=== PATIENT | male | born 1970 | race Caucasian/White ===

== ENCOUNTER 2016-11-27 22:22 | Emergency (ER) | payer MEDICAID, OTHER ==
[~2016-11-27] VITALS: Ht 172.7 cm; Wt 86.5 kg
[~2016-11-27 22:22] MED LIST: AZIT250T94 PO
[2016-11-27 23:07] VITALS: Ht 172.7 cm; Wt 86.5 kg
[2016-11-28] MEDS ORDERED: HYDROCODONE/APAP (5/325) TAB PO ONE (02:00)
--- NOTE | 2016-11-28 02:24 | ERD ---
ER Documentation Chief Complaint Date/Time DATE: 11/28/16 TIME: 02:22 Chief Complaint LEFT ANKLE PAIN FOR 3 DAYS; NO INJURY/TRAUMA PER PT HPI 46-year-old male presents to emergency department for complaints of left ankle pain mean to the left upper neck area for the last 3 days, patient was working, was lifting heavy objects, may have twisted the left ankle, describes the pain as throbbing pain, succession scale, is worse upon movement accompanied with swelling. Patient denies any numbness or tingling. Patient denies any fever or chills. ROS All systems reviewed and are negative except as per history of present illness. Medications Home Meds Active Scripts Ibuprofen* (Motrin*) 600 Mg Tab, 600 MG PO Q6H Y for PAIN AND OR ELEVATED TEMP, #30 TAB Prov:GILLIAN COLON NP 11/28/16 Hydrocodone/Acetaminophen ([place] 5-325 Tablet) 1 Each Tablet, 1 TAB PO Q6H Y for SEVERE PAIN LEVEL 7-10, #20 TAB Prov:GILLIAN COLON NP 11/28/16 Azithromycin* (Zithromax*) 250 Mg Tablet, 250 MG PO .ZPACK DIRECTED, #6 TAB TAKE 500 MG (2 TABS) THE FIRST DAY THEN 250 MG (1 TAB) DAYS 2-5 Prov:LILY LIRIANO DO 05/09/16 Allergies Allergies: Coded Allergies: No Known Allergy (Unverified , 05/09/16) PMhx/Soc History of Surgery: Yes (LEFT EYE SURGERY AND LEFT ARM SURGERY) Anesthesia Reaction: No Hx Neurological Disorder: No Hx Respiratory Disorders: No Hx Cardiac Disorders: No Hx Psychiatric Problems: No Hx Miscellaneous Medical Probl: No Hx Alcohol Use: Yes Hx Substance Use: No Hx Tobacco Use: No Smoking Status: Never smoker FmHx Family History: No coronary disease, No diabetes, No other Physical Exam Vitals Vital Signs Date Time Temp Pulse Resp B/P Pulse Ox O2 Delivery O2 Flow Rate FiO2 11/27/16 23:07 97.9 85 20 139/87 99 Physical Exam GENERAL: The patient is well developed and appropriate for usual state of health, in no apparent distress. CHEST: Clear to auscultation bilaterally. There are no rales, wheezes or rhonchi. HEART: Regular rate and rhythm. No murmurs, clicks, rubs or gallops. No S3 or S4. ABDOMEN: Soft, nontender and nondistended. Good bowel sounds. No rebound or guarding. No gross peritonitis. No gross organomegaly or masses. No Carolina sign or McBurney point tenderness. BACK: No midline or flank tenderness. EXTREMITIES: Redness on palpation and lateral malleolus with swelling noted, no erythema, no limitation of movement of the joint. Equal pulses bilaterally. Full range of motion of other joints of the body. Grossly neurovascularly intact. NEURO: Alert and oriented. Cranial nerves 2-12 intact. Motor strength in all 4 extremities with 5/5 strength. Sensation grossly intact. Normal speech and gait. SKIN: There is no apparent rash or petechia. The skin is warm and dry. HEMATOLOGIC AND LYMPHATIC: There is no evidence of excessive bruising or lymphedema. No gross cervical, axillary, or inguinal lymphadenopathy. Results 24 hrs Current Medications Medications (Trade) Dose Ordered Sig/Kelly Route PRN Reason Start Time Stop Time Status Last Admin Dose Admin Acetaminophen/ Hydrocodone Bitart ([place] (5/325)) 1 tab ONCE ONCE PO 11/28/16 02:00 11/28/16 02:01 DC 11/28/16 02:31 Patient was given medication for pain here in emergency department, after treatment, patient verbalized feeling much better. Patient's pain is improved. PROCEDURE: XR Ankle. CLINICAL INDICATION: Ankle pain. TECHNIQUE: AP, lateral and oblique views of the left ankle were performed. COMPARISON: There are no similar studies submitted for comparison. FINDINGS: There is normal bone mineralization.There is no acute fracture or dislocation.The ankle mortise is intact.No osseous lesion is identified.There is no soft tissue swelling. IMPRESSION: No acute fracture or dislocation. RPTAT: HIKT .Jameel Guerra MD, MD Date Time Electronically viewed and signed by .Jameel Guerra MD, on 11/28/2016 04:46 .T/ CC: GILLIAN COLON NP After receiving patients xray report, a _orthopedic boot was applied on the patients left foot. After application of the splint, patient has intact sensation and circulation on distal area of the affected joint. Patient does not complain of numbness or tingling after application of the splint. Patient tolerated procedure well. Crutches was given to use afterwards. Procedures/MDM Medical Decision Making: Patient's pain is most likely consistent with a contusion or a sprain. There is no suspicion for neurovascular compromise. Patient has intact sensation and circulation of the affected extremity. There is low suspicion for septic arthritis. Patient does not have any fever. Radiology exams of the affected area does not show any fracture or dislocation. Disposition: Home. Patient is given prescription for ibuprofen for pain. Patient was advised to elevate the affected area and apply ice on affected area. Patient was advised that if symptoms are worse, numbness, tingling, high fever, unable to move joint, worsening symptoms, to return to emergency department immediately. Otherwise, patient is advised to follow up with the primary care doctor in 5-7 days for reevaluation of symptoms. Departure Diagnosis: Primary Impression: Ankle pain Laterality: left Chronicity: acute Qualified Code: M25.572 - Acute left ankle pain Condition: Stable GILLIAN COLON NP Nov 28, 2016 02:24
[2016-11-28] MEDS ORDERED: HYDR-906 PO (04:47)
[2016-11-28] MEDS ORDERED: IBUP-1542 PO (04:47)
--- NOTE | 2016-11-28 04:47 | RADRPT ---
PROCEDURE: XR Ankle. CLINICAL INDICATION: Ankle pain. TECHNIQUE: AP, lateral and oblique views of the left ankle were performed. COMPARISON: There are no similar studies submitted for comparison. FINDINGS: There is normal bone mineralization.There is no acute fracture or dislocation.The ankle mortise is i ntact.No osseous lesion is identified.There is no soft tissue swelling. IMPRESSION: No acute fracture or dislocation. RPTAT: HIKT .Jameel Guerra MD, MD Date Time Electronically viewed and signed by .Jameel Guerra MD, on 11/28/2016 04:46 .T/
== END 2016-11-28 05:20 | disposition home or self-care (01) ==
LOC: FTE 22:22
DX: M25.572 Pain in left ankle and joints of left foot (principal)
CPT/HCPCS: 73610; Z7502; Z7610

== ENCOUNTER 2016-12-16 00:31 | Inpatient (IN) | payer OTHER ==
[~2016-12-16] VITALS: Ht 182.9 cm; Wt 88.0 kg
[2016-12-16] VITALS (8 sets, daily range): BP systolic 95–158; BP diastolic 57–98; PULSE 70–89; RESP 18–22; TEMP 99.3; Ht 182.9 cm; Wt 88.0 kg
[~2016-12-16 00:31] MED LIST changes: +HYDR-906 PO; +IBUP-1542 PO
--- NOTE | 2016-12-16 01:27 | ERA ---
ER Documentation Chief Complaint Date/Time DATE: 12/16/16 TIME: 01:26 Chief Complaint Right-sided chest pain HPI The patient is a 46-year-old male, presenting to the ER because he has acute dyspnea with acute hemoptysis about 3 hours prior to arrival with pleuritic chest pain. He denies fever, chills, syncope, near syncope, neck pain. The pain is also worse with movement. He had similar symptoms previously when he had pneumonia. He denies abdominal pain, vomiting, dysuria, diarrhea. He has been sedentary because of injury of the left leg couple weeks ago. He is awaiting for further study of the left leg. He does not smoke, drinks socially Past medical history: None Past Surgical history: Appendectomy ROS All systems reviewed and are negative except as per history of present illness. Medications Home Meds Active Scripts Ibuprofen* (Motrin*) 600 Mg Tab, 600 MG PO Q6H Y for PAIN AND OR ELEVATED TEMP, #30 TAB Prov:GILLIAN COLON NP 11/28/16 Hydrocodone/Acetaminophen ([place] 5-325 Tablet) 1 Each Tablet, 1 TAB PO Q6H Y for SEVERE PAIN LEVEL 7-10, #20 TAB Prov:GILLIAN COLON SENIOR CHEMICAL ENGINEER 11/28/16 Reported Medications Methylprednisolone* (Medrol* DOSE PACK) 4 Mg/Dose-Pack Tab.ds.pk, 4 MG PO . DIRECTED, PACKET 12/16/16 Discontinued Scripts Azithromycin* (Zithromax*) 250 Mg Tablet, 250 MG PO .ZPACK DIRECTED, #6 TAB TAKE 500 MG (2 TABS) THE FIRST DAY THEN 250 MG (1 TAB) DAYS 2-5 Prov:LILY LIRIANO DO 05/09/16 Allergies Allergies: Coded Allergies: No Known Allergy (Unverified , 12/16/16) PMhx/Soc History of Surgery: Yes (LEFT EYE SURGERY AND LEFT ARM SURGERY) Anesthesia Reaction: No Hx Neurological Disorder: No Hx Respiratory Disorders: No Hx Cardiac Disorders: No Hx Psychiatric Problems: No Hx Miscellaneous Medical Probl: No Hx Alcohol Use: Yes Hx Substance Use: No Hx Tobacco Use: No Physical Exam Vitals Vital Signs Date Time Temp Pulse Resp B/P Pulse Ox O2 Delivery O2 Flow Rate FiO2 12/16/16 04:38 76 123/76 98 Room Air 4.0 Nasal Cannula 12/16/16 02:23 Nasal Cannula 2 12/16/16 00:38 98.2 116 20 137/86 95 Physical Exam Const: No acute distress. Head: Atraumatic. Eyes: Normal Conjunctiva. ENT: Normal External Ears, Nose and Mouth. Neck: Full range of motion. No meningismus. Resp: Bibasilar crackle, tachypneic Cardio: Regular but tachycardic Abd: Soft, non distended, normal bowel sounds, non tender. Skin: No petechiae or rashes. Back: No midline or flank tenderness. Ext: Left calf and posterior thigh tenderness Neur: Awake and alert. No focal deficit Psych: Normal Mood and Affect. Result Diagram: 12/16/1622612/16/16226 Results 24 hrs Laboratory Tests Test 12/16/16 02:27 White Blood Count 13.310^3/ul Red Blood Count 5.0210^6/ul Hemoglobin 16.0g/dl Hematocrit 47.9% Mean Corpuscular Volume 95.4fl Mean Corpuscular Hemoglobin 31.9pg Mean Corpuscular Hemoglobin Concent 33.4g/dl Red Cell Distribution Width 13.3% Platelet Count 43359^3/UL Mean Platelet Volume 8.6fl Neutrophils % 67.3% Lymphocytes % 18.9% Monocytes % 12.1% Eosinophils % 0.5% Basophils % 0.6% Nucleated Red Blood Cells % 0.0/100WBC Neutrophils # 8.910^3/ul Lymphocytes # 2.510^3/ul Monocytes # 1.610^3/ul Eosinophils # 0.110^3/ul Basophils # 0.110^3/ul Nucleated Red Blood Cells # 0.010^3/ul Prothrombin Time 13.8Sec Prothrombin Time Ratio 1.1 INR International Normalized Ratio 1.06 Activated Partial Thromboplast Time 28.3Sec Sodium Level 143mmol/L Potassium Level 3.4mmol/L Chloride Level 96mmol/L Carbon Dioxide Level 30mmol/L Anion Gap 20 Blood Urea Nitrogen 9mg/dl Creatinine 0.97mg/dl Glucose Level 95mg/dl Calcium Level 8.9mg/dl Total Bilirubin 0.6mg/dl Direct Bilirubin 0.00mg/dl Indirect Bilirubin 0.6mg/dl Aspartate Amino Transf (AST/SGOT) 19IU/L Alanine Aminotransferase (ALT/SGPT) 39IU/L Alkaline Phosphatase 94IU/L Troponin I < 0.012ng/ml Total Protein 7.7g/dl Albumin 4.3g/dl Globulin 3.40g/dl Albumin/Globulin Ratio 1.26 Lipase 33U/L Ethyl Alcohol Level < 10.0mg/dl Current Medications Medications (Trade) Dose Ordered Sig/Kelly Route PRN Reason Start Time Stop Time Status Last Admin Dose Admin Morphine Sulfate (morphine) 4 mg ONCE STAT IV 12/16/16 01:51 12/16/16 01:52 DC 12/16/16 02:23 Ondansetron HCl (Zofran Inj) 4 mg ONCE STAT IV 12/16/16 01:51 12/16/16 01:52 DC 12/16/16 02:23 Enoxaparin Sodium (Lovenox) 90 mg ONCE ONCE SC 12/16/16 03:00 12/16/16 03:01 DC 12/16/16 02:36 IV Flush 10 ml 10 ml STK-MED ONCE .ROUTE 12/16/16 03:32 12/16/16 03:33 DC 12/16/16 03:50 Sodium Chloride (NS) 100 ml @ ud STK-MED ONCE .ROUTE 12/16/16 03:32 12/16/16 03:33 DC 12/16/16 03:50 Iodixanol (Visipaque Locm) 100 ml STK-MED ONCE .ROUTE 12/16/16 03:32 12/16/16 03:33 DC 12/16/16 03:50 Potassium Chloride 40 meq 40 meq ONCE ONCE PO 12/16/16 03:34 12/16/16 03:35 DC 12/16/16 05:18 Levofloxacin/ Dextrose 150 ml @ 100 mls/hr ONCE ONCE IVPB 12/16/16 05:00 12/16/16 06:29 Ceftriaxone Sodium (Rocephin) 50 ml @ 100 mls/hr ONCE ONCE IVPB 12/16/16 05:00 12/16/16 05:29 DC 12/16/16 05:18 Procedures/[place] [id number] Radiology Main Line: [phone] DIAGNOSTIC IMAGING REPORT Patient: HIRO LATIF : 1970 Age: 46 Sex: M MR #: [id number] DOS: 12/16/16 0150 Ordering MD: MAHNAZ CONTRERAS MD Location: E/R Room/Bed: PROCEDURE: Ultrasound examination of the left lower extremity with Doppler. CLINICAL INDICATION: Left leg pain and swelling. TECHNIQUE: Multiple sonographic images of the left lower extremity veins were performed with denney scale and color Doppler. COMPARISON: None. FINDINGS: There is deep venous thrombosis within the left superficial femoral and popliteal veins. The left common femoral vein demonstrates normal color flow and compression. IMPRESSION: Left lower extremity deep venous thrombosis. Results were given to Dr. Contreras at 02:30 a.m. by the tow operator. .Dennys Riddle MD, MD Date Time Electronically viewed and signed by .Dennys Riddle MD, MD on 12/16/2016 03:29 .T/ CC: MAHNAZ CONTRERAS MD [place] [id number] Radiology Main Line: [phone] DIAGNOSTIC IMAGING REPORT Patient: HIRO LATIF : 1970 Age: 46 Sex: M MR #: [id number] DOS: 12/16/16 0150 Ordering MD: MAHNAZ CONTRERAS MD Location: E/R Room/Bed: PROCEDURE: CTA Chest and pulmonary angiogram. CLINICAL INDICATION: Rule out pulmonary embolism, chest pain, shortness of breath, history of pulmonary embolism, left lower extremity deep venous thrombosis TECHNIQUE: CT scan of the chest and CT pulmonary angiogram was performed on a multidetector high-resolution CT scanner. High-resolution thin slice coronal and sagittal imaging was obtained from the axial source images. No 3-D/maximum intensity projection reformatted imaging was performed. The patient was examined following the intravenous administration of 100 cc of Omnipaque-350. The images were reviewed on a PACS workstation. The total exam CTDI equals 17.33 mGy, and the total exam DLP equals 696.33 mGy-cm. One or more the following dose reduction techniques were utilized: Automated exposure control, adjustment of the mA and / or kV according to patient's size, or use of iterative reconstruction technique. COMPARISON: Chest x-ray of 12/16/2016, Ultrasound left lower extremity venous Doppler of 12/16/2016 and CTA chest of 05/09/2016 FINDINGS: Filling defects consistent with emboli are seen in right middle lobe lobar and segmental and right lower lobe and left lower lobe segmental pulmonary arteries. No thoracic aortic aneurysm or dissection is seen. No enlarged mediastinal lymph nodes are seen. Trace right pleural fluid. Bilateral lower lobe and right middle lobe and lingular atelectasis/infiltrates. Mild dependent atelectasis in posterior upper lung lobes. Anterior bridging osteophytes in the thoracic spine. IMPRESSION: Pulmonary emboli as noted above. Bilateral lower lung lobe and right middle lung lobe and lingular atelectasis/infiltrates. Trace right pleural fluid. Please see above. Critical result discussed with Dr. Contreras at 04:30 a.m. on 12/16. RPTAT: HJES .Usman Gardner MD, MD Date Time Electronically viewed and signed by .Usman Gardner MD, MD on 12/16/2016 04:32 .S/ CC: MAHNAZ CONTRERAS MD [place] [address] Radiology Main Line: [phone] DIAGNOSTIC IMAGING REPORT Patient: HIRO LATIF : 1970 Age: 46 Sex: M MR #: [id number] DOS: 12/16/16 0150 Ordering MD: MAHNAZ CONTRERAS MD Location: E/R Room/Bed: PROCEDURE: XR Chest. CLINICAL INDICATION: Shortness of breath TECHNIQUE: Single frontal view of the chest was obtained COMPARISON: 05/09/2016 FINDINGS: The heart and mediastinum are within normal limits. Hypoinflation lungs and bibasilar atelectasis and possible infiltrates. There may be very small left pleural effusion. ECG leads projected over the chest. IMPRESSION: Hypoinflation of the lungs and bibasilar atelectasis and possible infiltrates. Possible very small left pleural effusion. RPTAT: HJES .Usman Gardner MD, Date Time Electronically viewed and signed by .Usman Gardner MD, MD on 12/16/2016 03:41 .S/ CC: MAHNAZ CONTRERAS MD EKG: Read by emergency physician Rate/Rhythm: Normal Sinus Rhythm 90 beats/min QRS, ST, T-waves: No ST elevation, no T inversion, left atrial enlargement Impression: Abnormal EKG MEDICAL MAKING DECISION: The patient is a 46-year-old male, presenting with acute respiratory failure, acute pulmonary embolism, acute left leg DVT, acute pneumonia, acute hypokalemia. His O2 saturation initially was well, however he later required 4 L nasal cannula to maintain oxygenation. He was treated with morphine 4 mg IV for pain, Zofran 4 mg IV for nausea, Lovenox 90 mg subcutaneously for acute PE and acute left leg DVT, potassium chloride 40 mg p.o. for hypokalemia, Levaquin IV and Rocephin IV for acute pneumonia Critical Care: Time: 35 minutes excluding all billable procedures. Treatments/Evaluations: Close monitoring and treatment of unstable vital signs, cardiorespiratory, and neurologic status, while maintaining tight balance of fluid, respiratory, and cardiac interventions. Consultation: I discussed the patient with Dr. Canales from his IPA at 5:30 AM, who was made aware of the lab, the treatment, the present condition. He authorized admission to [facility] Critical Care: Time: 35 minutes excluding all billable procedures. Treatments/Evaluations: Close monitoring and treatment of unstable vital signs, cardiorespiratory, and neurologic status, while maintaining tight balance of fluid, respiratory, and cardiac interventions. Departure Diagnosis: Primary Impression: Acute respiratory failure Additional Impressions: Pulmonary embolism Left leg DVT Hypokalemia Condition: Stable Comments I discussed the findings with the patient. I discussed the patient with the hospitalist Dr. Muse at 5:15 am who was made aware of the lab, the treatment, the patient condition. The patient is admitted to ICU MAHNAZ CONTRERAS MD Dec 16, 2016 01:27
[2016-12-16] MEDS ORDERED: morphine 4 MG/ML VIAL IV STA (01:51)
[2016-12-16] MEDS ORDERED: ONDANSETRON 4 MG INJ IV STA (01:51)
[2016-12-16] MEDS ORDERED: MED4DP PO (02:06)
[2016-12-16 02:55] LABS: ABNORMAL IP MESSAGE 1; BASOPHIL # 0.1 10^3/ul (0.0-0.1); BASOPHILS % 0.6 % (0.0-2.0); EOSINOPHILS # 0.1 10^3/ul (0.0-0.5); EOSINOPHILS % 0.5 % (0.0-7.0); HEMATOCRIT 47.9 % (42.0-52.0); LYMPHOCYTES # 2.5 10^3/ul (0.8-2.9); LYMPHOCYTES % 18.9 % (15.0-51.0); MEAN CORPUSCULAR HEMOGLOBIN 31.9 pg (29.0-33.0); MEAN CORPUSCULAR HGB CONC 33.4 g/dl (32.0-37.0); MEAN CORPUSCULAR VOLUME 95.4 fl (82.0-101.0); MEAN PLATELET VOLUME 8.6 fl (7.4-10.4); MONOCYTE # 1.6 10^3/ul (0.3-0.9); MONOCYTES % 12.1 % (0.0-11.0); NEUTROPHIL # 8.9 10^3/ul (1.6-7.5); NEUTROPHILS % 67.3 % (39.0-77.0); PLATELET COUNT 288 10^3/UL (140-415); POSITIVE DIFF @See below; RED BLOOD COUNT 5.02 10^6/ul (4.70-6.10); RED CELL DISTRIBUTION WIDTH 13.3 % (11.5-14.5); WHITE BLOOD COUNT 13.3 10^3/ul (4.8-10.8)
[2016-12-16] MEDS ORDERED: ENOXAPARIN 100 MG/ML SYG SC ONE (03:00)
[2016-12-16 03:06] LABS: INR 1.06; PROTIME 13.8 Sec (12.2-14.2); PT RATIO 1.1
[2016-12-16 03:07] LABS: PARTIAL THROMBOPLASTIN TIME 28.3 Sec (25.0-35.0)
[2016-12-16 03:10] LABS: ALANINE AMINOTRANSFERASE 39 IU/L (13-69); ALBUMIN 4.3 g/dl (3.3-4.9); ALBUMIN/GLOBULIN RATIO 1.26; ALKALINE PHOSPHATASE 94 IU/L (42-121); ANION GAP 20 (8-16); ASPARTATE AMINO TRANSFERASE 19 IU/L (15-46); BILIRUBIN,INDIRECT 0.6 mg/dl (0-1.1); BILIRUBIN,TOTAL 0.6 mg/dl (0.2-1.3); BLOOD UREA NITROGEN 9 mg/dl (7-20); CALCIUM 8.9 mg/dl (8.4-10.2); CARBON DIOXIDE 30 mmol/L (21-31); CHLORIDE 96 mmol/L (97-110); CREATININE 0.97 mg/dl (0.61-1.24); GLUCOSE 95 mg/dl (70-220); POTASSIUM 3.4 mmol/L (3.5-5.1); SODIUM 143 mmol/L (135-144); TOTAL PROTEIN 7.7 g/dl (6.1-8.1)
[2016-12-16 03:26] LABS: ETHANOL < 10.0 mg/dl; TROPONIN-I < 0.012 ng/ml (0.00-0.12)
--- NOTE | 2016-12-16 03:31 | RADRPT ---
PROCEDURE: Ultrasound examination of the left lower extremity with Doppler. CLINICAL INDICATION: Left leg pain and swelling. TECHNIQUE: Multiple sonographic images of the left lower extremity veins were performed with denney scale and color Doppler. COMPARISON: None. FINDINGS: There is deep venous thrombosis within the left superficial femoral and popliteal veins. The left co mmon femoral vein demonstrates normal color flow and compression. IMPRESSION: Left lower extremity deep venous thrombosis. Results were given to Dr. Meade at 02:30 a.m. by the laborer concrete paving. .Dennys Riddle MD, Date Time Electronically viewed and signed by .Dennys Riddle MD, MD on 12/16/2016 03:29 .T/
[2016-12-16] MEDS ORDERED: SOD CHLORIDE 0.9% 100 ML ONE (03:32)
[2016-12-16] MEDS ORDERED: IODIXANOL LOCM 100 ML BTL ONE (03:32)
[2016-12-16] MEDS ORDERED: POTASSIUM CHLORIDE (SR) 20 MEQ TAB PO ONE (03:34)
--- NOTE | 2016-12-16 03:41 | RADRPT ---
PROCEDURE: XR Chest. CLINICAL INDICATION: Shortness of breath TECHNIQUE: Single frontal view of the chest was obtained COMPARISON: 05/09/2016 FINDINGS: The heart and mediastinum are within normal limits. Hypoinflation lungs and bibasilar atelectasis and possible infiltrates. There may be very small left pleural effusion. ECG leads projected over the chest. IMPRESSION: Hypoinflation of the lungs and bibasilar atelectasis and possible infiltrates. Possible very small l eft pleural effusion. RPTAT: HJES .Usman Gardner MD, MD Date Time Electronically viewed and signed by .Usman Gardner MD, MD on 12/16/2016 03:41 .S/
--- NOTE | 2016-12-16 04:32 | RADRPT ---
PROCEDURE: CTA Chest and pulmonary angiogram. CLINICAL INDICATION: Rule out pulmonary embolism, chest pain, shortness of breath, history of pulm onary embolism, left lower extremity deep venous thrombosis TECHNIQUE: CT scan of the chest and CT pulmonary angiogram was performed on a multidetector high-r esolution CT scanner. High-resolution thin slice coronal and sagittal imaging was obtained from the axial source images. No 3-D/maximum intensity projection reformatted imaging was performed. The pa tient was examined following the intravenous administration of 100 cc of Omnipaque-350. The images w ere reviewed on a PACS workstation. The total exam CTDI equals 17.33 mGy, and the total exam DLP equ als 696.33 mGy-cm. One or more the following dose reduction techniques were utilized: Automated exposure control, adjus tment of the mA and / or kV according to patient's size, or use of iterative reconstruction techniqu e. COMPARISON: Chest x-ray of 12/16/2016, Ultrasound left lower extremity venous Doppler of 7 and CTA chest of 05/09/2016 FINDINGS: Filling defects consistent with emboli are seen in right middle lobe lobar and segmental and right l ower lobe and left lower lobe segmental pulmonary arteries. No thoracic aortic aneurysm or dissectio n is seen. No enlarged mediastinal lymph nodes are seen. Trace right pleural fluid. Bilateral lower lobe and right middle lobe and lingular atelectasis/infiltrates. Mild dependent atelectasis in post erior upper lung lobes. Anterior bridging osteophytes in the thoracic spine. IMPRESSION: Pulmonary emboli as noted above. Bilateral lower lung lobe and right middle lung lobe and lingular atelectasis/infiltrates. Trace right pleural fluid. Please see above. Critical result discussed sandy Meade at 04:30 a.m. on 12/16/2016. RPTAT: HJES .Usman Gardner MD, MD Date Time Electronically viewed and signed by .Usman Gardner MD, on 12/16/2016 04:32 .S/
[2016-12-16] MEDS ORDERED: LEVOFLOXACIN 750MG/D5W (PMX) 150 ML IVPB ONE (05:00)
[2016-12-16] MEDS ORDERED: CEFTRIAXONE 1 GM/50 ML (PMX) 50 ML IVPB ONE (05:00)
[2016-12-16] MEDS ORDERED: ALBUTEROL/IPRATROPIUM (NEB) 3 ML AMP NEB PRN (07:00)
--- NOTE | 2016-12-16 07:28 | HP ---
Date/Time of Note Date/Time of Note DATE: 12/16/16 TIME: 07:16 Assessment/Plan VTE Prophylaxis VTE Prophylaxis Intervention: heparin Assessment/Plan Assessment/Plan 1. Acute pulmonary embolism and left leg DVT -Patient had work related injury to his left ankle about 2 weeks ago and since then he has not been active. This explains the diagnosis -For now he will be treated with Lovenox. -Will place a pulmonary consult. 2. Sepsis as evidenced by leukocytosis and tachycardia, secondary to pneumonia -IV antibiotic and IV fluid -We will follow up on culture results including respiratory culture if possible HPI/ROS Admit Date/Time Admit Date/Time Hx of Present Illness This is a 46-year-old male with no significant past medical history who presented to the emergency department complaining of shortness of breath, cough with hemoptysis and chest pain. Chest pain and shortness of breath are worse with exertion. Chest pain is diffuse with no radiation. Denied nausea, vomiting, diaphoresis abdominal pain or urinary symptoms. When he presented to the ER, he was tachycardic with a heart rate of 116 otherwise the rest of his vitals were stable. CT pulmonary angiogram shows Pulmonary emboli as noted above. Bilateral lower lung lobe and right middle lung lobe and lingular atelectasis/infiltrates. Trace right pleural fluid. Lower extremity venous study shows DVT. He received a treatment dose of Lovenox in the ER. Patient had left ankle injury that happened over 2 weeks ago when he was lifting up heavy object and possibly twisting his ankle. Since then he has not been active. He actually came to our ER on November 28 and had x-ray of his right ankle which showed no fracture or dislocation. . PMH/Family/Social Past Medical History Medical History: no pertinent history Past Surgical History Past Surgical Hx: other (Left eye surgery and left arm surgery) Social History Alcohol Use: occasionally Smoking Status: Unknown if ever smoked Drug Use: none Exam/Review of Systems Vital Signs Vitals Vital Signs Date Time Temp Pulse Resp B/P Pulse Ox O2 Delivery O2 Flow Rate FiO2 12/16/16 07:09 84 28 135/90 95 12/16/16 04:38 Room Air 4.0 Nasal Cannula 12/16/16 00:38 98.2 Intake and Output 12/15/16 12/15/16 12/16/16 15:00 23:00 07:00 Intake Total 200 ml Balance 200 ml Exam Constitutional: alert, oriented, well developed Head: atraumatic, normocephalic Eyes: EOMI, PERRL Neck: non-tender, supple Respiratory: clear to auscultation, normal air movement Cardiovascular: other (Tachycardic with regular rhythm) Gastrointestinal: non-tender, soft Extremities: normal pulses Labs Result Diagram: 12/16/1622612/16/16226 Medications Medications Current Medications Ondansetron HCl (Zofran Inj) 4 mg Q6H PRN IV NAUSEA AND/OR VOMITING; Start 12/16 at 07:30; Status UNV Acetaminophen (Tylenol Liquid) 650 mg Q6H PRN PO PAIN LEVEL 1-3 OR FEVER; Start 12/16/16 at 07:30; Status UNV Morphine Sulfate (morphine) 2 mg Q4H PRN IV PAIN LEVEL 7-10; Start 12/16/16 at 07:30; Status UNV Lorazepam (Ativan) 1 mg Q2H PRN IV ANXIETY; Start 12/16/16 at 07:30; Status UNV Pantoprazole (Protonix Iv) 40 mg DAILY@06 IV ; Start 12/17/16 at 06:00; Status UNV WILMAR MAK MD Dec 16, 2016 07:27
[2016-12-16] MEDS: ONDANSETRON 4 MG INJ IV PRN ×3 (07:29→20:30)
[2016-12-16] MEDS ORDERED: LORAZEPAM 2 MG INJ IV PRN (07:30)
[2016-12-16] MEDS ORDERED: morphine 4 MG/ML VIAL IV PRN (07:30)
[2016-12-16] MEDS ORDERED: ACETAMINOPHEN 650MG/20.3ML CUP PO PRN (07:30)
[2016-12-16] MEDS: LEVOFLOXACIN 500MG/D5W (PMX) 100 ML IVPB SCH (07:41)
[2016-12-16] MEDS: ENOXAPARIN 100 MG/ML SYG SC SCH ×2 (10:57→20:32)
[2016-12-16] MEDS ORDERED: POTASSIUM CHLORIDE (SR) 20 MEQ TAB PO STA (13:20)
[2016-12-16] MEDS ORDERED: HYDROCODONE/APAP (7.5/325) TAB PO PRN (13:30)
[2016-12-16] MEDS: morphine 2 MG INJ IV PRN ×2 (13:39→20:21)
--- NOTE | 2016-12-16 17:12 | CONS ---
Date/Time of Note Date/Time of Note DATE: 12/16/16 TIME: 17:01 Assessment/Plan Assessment/Plan Additional Assessment/Plan IMP: 1. Acute PE in patient with likely DVT for a month or longer. Appears unprovoked as the DVT likely was a cause of his LE issues and not a sprain 2. B/L lower lobe infiltrates--RLL can be due to infarction, however, LLL there are no PE's 3. Hemoptysis--due to #1 RECS: 1. Full dose lovenox Q12 2. Obtain TTE and serum BNP 3. No signs of submassive PE (based on RV/LV ratio on CTA and negative TnI)_ 4. Hypercoag w/u 5. Monitor and quantify all hemoptysis case d/w patient and mother Consultation Date/Type/Reason Admit Date/Time Date of Consultation: Dec 16, 2016 Type of Consultation: pulm Hx of Present Illness In brief, this is a 46-year-old male with no significant past medical history presents with a history of LLE swelling since last month which he attributed to an ankle sprain, followed more recently by acute right sided pleuritic CP. CTA showed RLL lobar and segmental PEs and b/l lower lobe airspace disease. Also has intermittent hemoptysis. Constitutional: no complaints Eyes: no complaints ENT: no complaints Respiratory: pain, pleuritic pain Gastrointestinal: no complaints Genitourinary: no complaints Musculoskeletal: swelling Skin: no complaints Neurologic: no complaints Endocrine: no complaints Lymphatic: no complaints Past Medical History h/o pneumonia Medical History: no pertinent history Past Surgical History appy Past Surgical Hx: other (Left eye surgery and left arm surgery) Family History Significant Family History: other (collk) Social History FH of colon cancer Alcohol Use: none Smoking Status: Former smoker Drug Use: none Exam/Review of Systems Vital Signs Vitals Vital Signs Date Time Temp Pulse Resp B/P Pulse Ox O2 Delivery O2 Flow Rate FiO2 12/16/16 16:11 79 12/16/16 12:07 98.2 18 95/57 96 12/16/16 04:38 Room Air 4.0 Nasal Cannula Intake and Output 12/15/16 12/15/16 12/16/16 15:00 23:00 07:00 Intake Total 200 ml Balance 200 ml Exam Constitutional: alert, oriented Psych: no complaints Head: atraumatic, normocephalic Eyes: EOMI, PERRL, nl conjunctiva, nl sclera ENMT: mucosa pink and moist, nl external ears & nose, nl lips & teeth Neck: non-tender, supple Respiratory: clear to auscultation, normal air movement Cardiovascular: nl pulses, regular rate and rhythm Gastrointestinal: nl liver, spleen, soft Musculoskeletal: nl extremities to inspection Extremities: calf tenderness, edema, normal pulses Results Result Diagram: 12/16/1622612/16/16226 Results 24 hrs Laboratory Tests Test 12/16/16 02:27 White Blood Count 13.3 #H Red Blood Count 5.02 Hemoglobin 16.0 Hematocrit 47.9 Mean Corpuscular Volume 95.4 Mean Corpuscular Hemoglobin 31.9 Mean Corpuscular Hemoglobin Concent 33.4 Red Cell Distribution Width 13.3 Platelet Count 288 Mean Platelet Volume 8.6 Neutrophils % 67.3 Lymphocytes % 18.9 Monocytes % 12.1 H Eosinophils % 0.5 Basophils % 0.6 Nucleated Red Blood Cells % 0.0 Neutrophils # 8.9 H Lymphocytes # 2.5 Monocytes # 1.6 H Eosinophils # 0.1 Basophils # 0.1 Nucleated Red Blood Cells # 0.0 Prothrombin Time 13.8 Prothrombin Time Ratio 1.1 INR International Normalized Ratio 1.06 Activated Partial Thromboplast Time 28.3 Sodium Level 143 Potassium Level 3.4 L Chloride Level 96 L Carbon Dioxide Level 30 Anion Gap 20 H Blood Urea Nitrogen 9 Creatinine 0.97 Glucose Level 95 Calcium Level 8.9 Total Bilirubin 0.6 Direct Bilirubin 0.00 Indirect Bilirubin 0.6 Aspartate Amino Transf (AST/SGOT) 19 Alanine Aminotransferase (ALT/SGPT) 39 Alkaline Phosphatase 94 Troponin I < 0.012 Total Protein 7.7 Albumin 4.3 Globulin 3.40 H Albumin/Globulin Ratio 1.26 Lipase 33 Ethyl Alcohol Level < 10.0 Medications Medications Current Medications Ondansetron HCl (Zofran Inj) 4 mg Q6H PRN IV NAUSEA AND/OR VOMITING Last administered on 12/16/16t 13:37; Admin Dose 4 MG; Start 12/16/16 at 07:30 Acetaminophen (Tylenol Liquid) 650 mg Q6H PRN PO PAIN LEVEL 1-3 OR FEVER; Start 12/16/16 at 07:30 Lorazepam (Ativan) 1 mg Q2H PRN IV ANXIETY Last administered on 12/16/16 08:04 ; Admin Dose 1 MG; Start 12/16/16 at 07:30 Pantoprazole (Protonix Iv) 40 mg DAILY@06 IV ; Start 12/17/16 at 06:00 Enoxaparin Sodium 90 mg 90 mg Q12 SC Last administered on 12/16/16 10:57; Admin Dose 90 MG; Start 12/16/16 at 09:00 Levofloxacin/ Dextrose (Levaquin 500mg/ D5W 100 ml (Pmx)) 100 ml @ 100 mls/hr DAILY IVPB Last administered on 12/16/16 07:41; Admin Dose 100 MLS/HR; Start at 09:00 Morphine Sulfate (morphine) 2 mg Q4H PRN IV PAIN LEVEL 7-10 Last administered on 12/16/16 13:39; Admin Dose 2 MG; Start 12/16/16 at 11:30 Acetaminophen/ Hydrocodone Bitart (Mary D (7.5-325)) 2 tab Q4H PRN PO pain; Start 12/16/16 at 13:30 CHON MONIQUE MD Dec 16, 2016 17:12
[2016-12-16] MEDS ORDERED: SOD CHLORIDE 0.9% 1,000 ML IV SCH (21:30)
[2016-12-17] VITALS (11 sets, daily range): BP systolic 134–161; BP diastolic 60–101; PULSE 85–96; RESP 17–20
[2016-12-17] MEDS: morphine 2 MG INJ IV PRN ×3 (00:20→09:54)
[2016-12-17] MEDS: PANTOPRAZOLE 40 MG INJ IV SCH (06:41)
[2016-12-17] MEDS: LEVOFLOXACIN 500MG/D5W (PMX) 100 ML IVPB SCH (09:51)
[2016-12-17] MEDS: ENOXAPARIN 100 MG/ML SYG SC SCH ×2 (09:53→20:42)
[2016-12-17 11:02] LABS: BASOPHILS % 0.3 % (0.0-2.0); EOSINOPHILS % 0.3 % (0.0-7.0); HEMATOCRIT 51.4 % (42.0-52.0); HEMOGLOBIN 17.5 g/dl (14.0-18.0); LYMPHOCYTES # 1.5 10^3/ul (0.8-2.9); LYMPHOCYTES % 12.8 % (15.0-51.0); MEAN CORPUSCULAR HEMOGLOBIN 32.1 pg (29.0-33.0); MEAN CORPUSCULAR VOLUME 94.3 fl (82.0-101.0); MEAN PLATELET VOLUME 9.8 fl (7.4-10.4); MONOCYTES % 8.8 % (0.0-11.0); NEUTROPHILS % 77.5 % (39.0-77.0); PLATELET COUNT 225 10^3/UL (140-415); RED BLOOD COUNT 5.45 10^6/ul (4.70-6.10); WHITE BLOOD COUNT 11.6 10^3/ul (4.8-10.8)
[2016-12-17 11:30] LABS: CALCIUM 9.6 mg/dl (8.4-10.2); CREATININE 0.77 mg/dl (0.61-1.24); POTASSIUM 4.4 mmol/L (3.5-5.1)
--- NOTE | 2016-12-17 12:21 | PN ---
Date/Time of Note Date/Time of Note DATE: 12/17/16 TIME: 12:15 Assessment/Plan VTE Prophylaxis VTE Prophylaxis Intervention: LMWH Lines/Catheters IV [facility] Saline Lock Assessment/Plan Chief Complaint/Hosp Course Assessment and plan 1. Acute pulmonary embolism. Patient on therapeutic Lovenox. Continue his regimen. Gate Clerk following. Continue recommendations 2. Left lower extremity DVT. Continue on therapeutic dose of Lovenox. Fork Lift Technician follow for hypercoagulable workup 3. Suspect sepsis secondary to pneumonia. Continue antibiotics DVT prophylaxis: Lovenox Disposition and plan: Continue with therapeutic Lovenox. Get pain management physician to follow for analgesic regimen. Continue antibiotics and Lovenox. Fork Lift Technician to follow for hypercoagulable workup. Discussed plan of care with Dr. Fontanez Problems: Subjective 24 Hr Interval Summary Free Text/Dictation Still reports having some pain on chest more on right side of the ribs. Exam/Review of Systems Vital Signs Vitals Vital Signs Date Time Temp Pulse Resp B/P Pulse Ox O2 Delivery O2 Flow Rate FiO2 12/17/16 11:43 97.8 80 17 146/60 97 12/16/16 04:38 Room Air 4.0 Nasal Cannula Intake and Output 12/16/16 12/16/16 12/17/16 14:59 22:59 06:59 Intake Total 50 ml 720 ml Balance 50 ml 720 ml Exam Constitutional: alert, oriented, other (reporting having pain) Eyes: nl conjunctiva Neck: No non-tender Respiratory: normal air movement Cardiovascular: regular rate and rhythm Gastrointestinal: non-tender, soft Musculoskeletal: nl extremities to inspection Extremities: normal pulses Neurological: DIRECTOR OF ACADEMIC SUPPORT II-XII intact, nl mental status, nl speech Skin: nl turgor Results Result Diagram: 12/17/16 1002 12/17/16 1002 Results 24 hrs Laboratory Tests Test 12/16/16 17:30 12/17/16 10:02 B-Type Natriuretic Peptide 47 White Blood Count 11.6 H Red Blood Count 5.45 Hemoglobin 17.5 Hematocrit 51.4 Mean Corpuscular Volume 94.3 Mean Corpuscular Hemoglobin 32.1 Mean Corpuscular Hemoglobin Concent 34.0 Red Cell Distribution Width 13.0 Platelet Count 225 # Mean Platelet Volume 9.8 Neutrophils % 77.5 H Lymphocytes % 12.8 L Monocytes % 8.8 Eosinophils % 0.3 Basophils % 0.3 Nucleated Red Blood Cells % 0.0 Neutrophils # 9.0 H Lymphocytes # 1.5 Monocytes # 1.0 H Eosinophils # 0.0 Basophils # 0.0 Nucleated Red Blood Cells # 0.0 Sodium Level 140 Potassium Level 4.4 Chloride Level 102 Carbon Dioxide Level 21 Anion Gap 21 H Blood Urea Nitrogen 6 L Creatinine 0.77 Glucose Level 113 Calcium Level 9.6 Medications Medications Current Medications Ondansetron HCl (Zofran Inj) 4 mg Q6H PRN IV NAUSEA AND/OR VOMITING Last administered on 12/16/16 20:30; Admin Dose 4 MG; Start 12/16/16 at 07:30 Pantoprazole (Protonix Iv) 40 mg DAILY@06 IV Last administered on 12/17/16 06: 41; Admin Dose 40 MG; Start 12/17/16 at 06:00 Enoxaparin Sodium 90 mg 90 mg Q12 SC Last administered on 12/17/16 09:53; Admin Dose 90 MG; Start 12/16/16 at 09:00 Levofloxacin/ Dextrose (Levaquin 500mg/ D5W 100 ml (Pmx)) 100 ml @ 100 mls/hr DAILY IVPB Last administered on 12/17/16 09:51; Admin Dose 100 MLS/HR; Start at 09:00 Hydralazine HCl (Apresoline) 25 mg Q8H PRN PO ELEVATED BLOOD PRESSURE Last administered on 12/17/16 03:55; Admin Dose 25 MG; Start 12/17/16 at 04:00 Hydromorphone HCl (Dilaudid CONTINUOUS VULCANIZING MACHINE OPERATOR) MG/HR CONTINUOUS R... Q4PCA IV ; Start 12/17/16 at 11:30 DANIEL UNDERWOOD Dec 17, 2016 12:21
--- NOTE | 2016-12-17 12:27 | RADRPT ---
Echocardiogram Report Patient Name: HIRO LATIF Gender: Male Date: 1970 Study Date: 17-Dec-2016 Air Pollution Engineer: XUAN Location: I Ref. Physician: CHON MONIQUE Quality: Adequate Procedures: Transthoracic echocardiogram with complete 2D, M-Mode, and Doppler examination. Indications: R/O RV strain. 2D/M Mode Doppler Measurement Value Normal Ranges Measurement Value Normal Ranges AoR Diam MM 3.7 cm AV Peak Chele 1.3 m/sec ACS MM 2.4 cm AV Peak PG 6.5 mmHg LVIDd 2D 4.7 3.5 - 5.6 cm LVOT Peak Chele 0.8 m/sec LVIDs 2D 2.8 2.1 - 4.1 cm LVOT Peak PG 2.7 mmHg LVPWd 2D 0.7 0.6 - 1.1 cm MV E Peak Chele 0.5 m/sec IVSd 2D 1.1 0.6 - 1.1 cm MV A Peak Chele 0.7 m/sec EDV 2D 104.7 cm3 MV E/A 0.8 ESV 2D 22.3 cm3 MV Decel Time 205 msec LA Dimen 2D 3.3 2.3 - 4.0 cm MV Decel Stutsman 3 MV E/A 0.8 PV Peak Chele 1.0 m/sec PV Peak PG 4.0 mmHg Findings Left Ventricle: Normal left ventricular systolic function. Normal left ventricular cavity size. Normal left ventricular wall thickness. Ejection fraction is visually estimated at 65 %. Tissue Doppler/Mitral Doppler indices are consistent with impaired relaxation (Stage I diastolic dysfunction). E/E`=5. Right Ventricle: Normal right ventricular size. Normal right ventricular systolic function. Left Atrium: The left atrium is normal in size. Right Atrium: The right atrium is normal in size. Atrial Septum: Normal atrial septum. Mitral Valve: Normal appearance and function of the mitral valve with trace physiologic regurgitation. Aortic Valve: Normal appearance of the aortic valve. No hemodynamically significant aortic stenosis by doppler. Mild aortic valve regurgitation. Tricuspid Valve: Normal appearance of the tricuspid valve. No evidence of tricuspid regurgitation. Pulmonic Valve: Normal pulmonic valve appearance. No evidence of pulmonic regurgitation. Pericardium: Normal pericardium with no significant pericardial effusion. Aorta: There is mild aortic root dilation. IVC: Normal size and normal respiratory collapse consistent with normal right atrial pressure. Pulmonary Artery: Normal pulmonary artery size. Conclusions 1.Normal left ventricular systolic function. Normal left ventricular cavity size. Normal left ventricular wall thickness. Ejection fraction is visually estimated at 65 %. Tissue Doppler/Mitral Doppler indices are consistent with impaired relaxation (Stage I diastolic dysfunction). E/E`=5. 2.Normal appearance and function of the mitral valve with trace physiologic regurgitation. 3.Normal appearance of the tricuspid valve. No evidence of tricuspid regurgitation. 4.Normal appearance of the aortic valve. No hemodynamically significant aortic stenosis by doppler. Mild aortic valve regurgitation. 5.There is mild aortic root dilation. 6.Normal right ventricular size. Normal right ventricular systolic function. Electronically Signed By: Humberto Geiger 17-Dec-2016 12:26:39 -0700 Patient Name: HIRO LATIF Study Date: 17-Dec-2016 [id number]
[2016-12-17] MEDS: HYDROmorphONE 0.2 MG/ML PCA IV SCH ×3 (13:55→21:30)
--- NOTE | 2016-12-17 15:48 | CONS ---
Date/Time of Note Date/Time of Note DATE: 12/17/16 TIME: 15:45 Consult Date/Type/Reason Admit Date/Time Dec 16, 2016 at 07:11 Initial Consult Date 12/16/16 Type of Consultation: pulm Subjective Feeling much better. Less pain with CORRECTIONAL AGENCY DIRECTOR Objective Vital Signs Date Time Temp Pulse Resp B/P Pulse Ox O2 Delivery O2 Flow Rate FiO2 12/17/16 12:00 96 12/17/16 11:43 97.8 17 146/60 97 12/16/16 04:38 Room Air 4.0 Nasal Cannula Intake and Output 12/16/16 12/16/16 12/17/16 15:00 23:00 07:00 Intake Total 50 ml 720 ml Balance 50 ml 720 ml Exam HEENT: Neck supple; no JVD; no LAD CVS: RRR, S1 and S2 CHEST: Bibasilar rales ABD: Soft, NT, + BS EXT: LLE edema Results/Medications Result Diagram: 12/17/16 1002 12/17/16 1002 Results 24 hrs Laboratory Tests Test 12/16/16 17:30 12/17/16 10:02 B-Type Natriuretic Peptide 47 White Blood Count 11.6 H Red Blood Count 5.45 Hemoglobin 17.5 Hematocrit 51.4 Mean Corpuscular Volume 94.3 Mean Corpuscular Hemoglobin 32.1 Mean Corpuscular Hemoglobin Concent 34.0 Red Cell Distribution Width 13.0 Platelet Count 225 # Mean Platelet Volume 9.8 Neutrophils % 77.5 H Lymphocytes % 12.8 L Monocytes % 8.8 Eosinophils % 0.3 Basophils % 0.3 Nucleated Red Blood Cells % 0.0 Neutrophils # 9.0 H Lymphocytes # 1.5 Monocytes # 1.0 H Eosinophils # 0.0 Basophils # 0.0 Nucleated Red Blood Cells # 0.0 Sodium Level 140 Potassium Level 4.4 Chloride Level 102 Carbon Dioxide Level 21 Anion Gap 21 H Blood Urea Nitrogen 6 L Creatinine 0.77 Glucose Level 113 Calcium Level 9.6 Medications Current Medications Ondansetron HCl (Zofran Inj) 4 mg Q6H PRN IV NAUSEA AND/OR VOMITING Last administered on 12/16/16 20:30; Admin Dose 4 MG; Start 12/16/16 at 07:30 Pantoprazole (Protonix Iv) 40 mg DAILY@06 IV Last administered on 12/17/16 06: 41; Admin Dose 40 MG; Start 12/17/16 at 06:00 Enoxaparin Sodium 90 mg 90 mg Q12 SC Last administered on 12/17/16 09:53; Admin Dose 90 MG; Start 12/16/16 at 09:00 Levofloxacin/ Dextrose (Levaquin 500mg/ D5W 100 ml (Pmx)) 100 ml @ 100 mls/hr DAILY IVPB Last administered on 12/17/16 09:51; Admin Dose 100 MLS/HR; Start at 09:00 Hydralazine HCl (Apresoline) 25 mg Q8H PRN PO ELEVATED BLOOD PRESSURE Last administered on 12/17/16 03:55; Admin Dose 25 MG; Start 12/17/16 at 04:00 Hydromorphone HCl (Dilaudid CORRECTIONAL AGENCY DIRECTOR) MG/HR CONTINUOUS R... Q4PCA IV Last administered on 12/17/16 13:55; Admin Dose 6 MG; Start 12/17/16 at 11:30 Assessment/Plan Chief Complaint/Hosp Course In brief, this is a 46-year-old male with no significant past medical history presents with a history of LLE swelling since last month which he attributed to an ankle sprain, followed more recently by acute right sided pleuritic CP. CTA showed RLL lobar and segmental PEs and b/l lower lobe airspace disease. Also has intermittent hemoptysis. Problems: Additional Assessment/Plan 1. Acute PE in patient with likely DVT for a month or longer. Appears unprovoked as the DVT likely was a cause of his LE issues and not a sprain. ECHO normal 2. B/L lower lobe infiltrates--RLL can be due to infarction, however, LLL there are no PE's 3. Hemoptysis--due to #1 RECS: 1. Full dose lovenox Q12 2. Start apixibam tomorrow--will likely require lifelong anticoagulation 3. No signs of submassive PE 4. Hypercoag w/u initiated 5. Monitor and quantify all hemoptysis 6. Cont Abx. CHON MONIQUE MD Dec 17, 2016 15:48
--- NOTE | 2016-12-17 18:37 | CONS ---
Date/Time of Note Date/Time of Note DATE: 12/17/16 TIME: 18:18 Assessment/Plan Assessment/Plan Chief Complaint/Hosp Course #LLE DVT - per pulmonary this likely preceded the ankle sprain and appears to have been unprovoked -will perform hypercoagulable workup at this time . Not patient is on Lovenox and pt has and acute PE so the hypercoag workup may be falsely positive or negative. Will check for FVL, PTGM, Protein C and S levels, AT III levels, and r /o antiphospholipid syndrome -continue Lovenox 1mg/kg BID -agree that patient can switch to newer generation anticoagulant upon discharge -based on hypercoag workup we will make our recommendations on whether or not patient will need life ling anticoagulation. #Acute PE in RLL with segemental PE - continue anticoagulation as above. #Pneumonia -continue antibiotics -cont Dilaudid RAILROAD WHEELS AND AXLE INSPECTOR per primary team # Pain - improved. -cont Dilaudid RAILROAD WHEELS AND AXLE INSPECTOR Problems: (1) Pulmonary embolism Status: Acute Qualifiers: (2) Left leg DVT Status: Acute Qualifiers: Qualified Code: I82.4Y2 - Deep vein thrombosis (DVT) of proximal vein of left lower extremity, unspecified chronicity Consultation Date/Type/Reason Admit Date/Time Dec 16, 2016 at 07:11 Date of Consultation: Dec 17, 2016 Type of Consultation: hematology Reason for Consultation Left LE DVT/ Bilateral PE Referring Provider: DANIEL UNDERWOOD Hx of Present Illness 46-year-old male with no significant past medical history who presented to the emergency department complaining of shortness of breath, cough with hemoptysis and chest pain with exertion. In the ER patient was found to be tachycardic with a HR of 115. A CTA was subsequently done which revealed filling defects consistent with emboli are seen in right middle lobe lobar and segmental and right lower lobe and left lower lobe segmental pulmonary arteries, consistent with bilateral pulmonary emboli. A LE ultrasound was done which revealed deep venous thrombosis within the left superficial femoral and popliteal veins. Pt he sprained in ankle a couple of weeks ago and has been sedentary. Pt has been seen by pulmonary who believes the LLE DVT appears chronic and likely the cause of the sprain. The LE DVT then likely resulted in the pulmonary emboli. Given that the LE DVT is thought to be unprovoked we have been consulted for further workup. Constitutional: no complaints Eyes: no complaints ENT: no complaints Respiratory: pain, pleuritic pain Gastrointestinal: no complaints Genitourinary: no complaints Musculoskeletal: swelling Skin: no complaints Neurologic: no complaints Endocrine: no complaints Lymphatic: no complaints Psychological: no complaints Past Medical History Medical History: no pertinent history Past Surgical History Past Surgical Hx: other (Left eye surgery and left arm surgery) Family History Significant Family History: no pertinent family hx Social History Alcohol Use: none Smoking Status: Former smoker Drug Use: none Exam/Review of Systems Vital Signs Vitals Vital Signs Date Time Temp Pulse Resp B/P Pulse Ox O2 Delivery O2 Flow Rate FiO2 12/17/16 16:02 98.5 93 20 139/92 95 12/16/16 04:38 Room Air 4.0 Nasal Cannula Intake and Output 12/16/16 12/16/16 12/17/16 15:00 23:00 07:00 Intake Total 50 ml 720 ml Balance 50 ml 720 ml Exam Constitutional: alert, oriented Psych: no complaints Head: normocephalic Eyes: nl conjunctiva ENMT: nl external ears & nose Neck: non-tender, supple Respiratory: clear to auscultation, normal air movement Cardiovascular: regular rate and rhythm Gastrointestinal: soft Musculoskeletal: joint tenderness Results Result Diagram: 12/17/16 1002 12/17/16 1002 Results 24 hrs Laboratory Tests Test 12/17/16 10:02 White Blood Count 11.6 H Red Blood Count 5.45 Hemoglobin 17.5 Hematocrit 51.4 Mean Corpuscular Volume 94.3 Mean Corpuscular Hemoglobin 32.1 Mean Corpuscular Hemoglobin Concent 34.0 Red Cell Distribution Width 13.0 Platelet Count 225 # Mean Platelet Volume 9.8 Neutrophils % 77.5 H Lymphocytes % 12.8 L Monocytes % 8.8 Eosinophils % 0.3 Basophils % 0.3 Nucleated Red Blood Cells % 0.0 Neutrophils # 9.0 H Lymphocytes # 1.5 Monocytes # 1.0 H Eosinophils # 0.0 Basophils # 0.0 Nucleated Red Blood Cells # 0.0 Sodium Level 140 Potassium Level 4.4 Chloride Level 102 Carbon Dioxide Level 21 Anion Gap 21 H Blood Urea Nitrogen 6 L Creatinine 0.77 Glucose Level 113 Calcium Level 9.6 Medications Medications Current Medications Ondansetron HCl (Zofran Inj) 4 mg Q6H PRN IV NAUSEA AND/OR VOMITING Last administered on 12/16/16 20:30; Admin Dose 4 MG; Start 12/16/16 at 07:30 Pantoprazole (Protonix Iv) 40 mg DAILY@06 IV Last administered on 12/17/16 06: 41; Admin Dose 40 MG; Start 12/17/16 at 06:00 Enoxaparin Sodium 90 mg 90 mg Q12 SC Last administered on 12/17/16 09:53; Admin Dose 90 MG; Start 12/16/16 at 09:00 Levofloxacin/ Dextrose (Levaquin 500mg/ D5W 100 ml (Pmx)) 100 ml @ 100 mls/hr DAILY IVPB Last administered on 12/17/16 09:51; Admin Dose 100 MLS/HR; Start at 09:00 Hydralazine HCl (Apresoline) 25 mg Q8H PRN PO ELEVATED BLOOD PRESSURE Last administered on 12/17/16 03:55; Admin Dose 25 MG; Start 12/17/16 at 04:00 Hydromorphone HCl (Dilaudid RAILROAD WHEELS AND AXLE INSPECTOR) MG/HR CONTINUOUS R... Q4PCA IV Last administered on 12/17/16 17:04; Admin Dose 6 MG; Start 12/17/16 at 11:30 ROSE RIGGS M.D. Dec 17, 2016 18:28
[2016-12-17] MEDS ORDERED: MAGNESIUM HYDROXIDE 30ML CUP PO PRN (20:30)
[2016-12-17] MEDS: SENNA TAB PO SCH (20:35)
[2016-12-18] VITALS (12 sets, daily range): BP systolic 130–144; BP diastolic 71–95; PULSE 81–120; RESP 18–20
[2016-12-18] MEDS: HYDROmorphONE 0.2 MG/ML PCA IV SCH ×4 (03:25→20:31)
[2016-12-18] MEDS: PANTOPRAZOLE 40 MG INJ IV SCH (06:15)
[2016-12-18] MEDS: SENNA TAB PO SCH ×2 (08:49→20:39)
[2016-12-18] MEDS: ONDANSETRON 4 MG INJ IV PRN ×3 (08:49→17:39)
[2016-12-18] MEDS: LEVOFLOXACIN 500MG/D5W (PMX) 100 ML IVPB SCH (08:49)
[2016-12-18] MEDS: ENOXAPARIN 100 MG/ML SYG SC SCH ×2 (09:01→20:38)
--- NOTE | 2016-12-18 10:50 | CONS ---
Date/Time of Note Date/Time of Note DATE: 12/18/16 TIME: 10:43 Assessment/Plan Assessment/Plan Additional Assessment/Plan Pulmonary emboli Probable pulmonary infarct Hemoptysis Severe right chest pain Pleuritic right chest pain Left lower extremity DVT Prior trauma left lower extremity Dilaudid SURGICAL DRESSING MAKER encouraged cough deep breathing. Consultation Date/Type/Reason Admit Date/Time Dec 16, 2016 at 07:11 Reason for Consultation Pain management Hx of Present Illness Very pleasant 46-year-old gentleman with a history of trauma to his left lower extremity thereafter felt that he developed a cramp some days thereafter and increasing shortness of breath. Denied nausea vomiting PND orthopnea, there is no past medical history of coronary heart disease, patient is a non-smoker nondrinker was diagnosed with bilateral pulmonary emboli.. Patient complains of severe right chest wall discomfort with sharp pain with radiations to his right shoulder, rated 10/10 with current pain medications 7/10. Patient is no past medical history of illicit drug abuse his pain is clinically significant he is unable to take deep breaths or cough without extreme discomfort. Is affecting his physical function mood sleeping patterns overall function. With current medications denies pruritus denies sweating he has not asked for frequent dosings or change in the amount of pain medication is receiving, he is not using his pain medications and response to situational stressor. Constitutional: no complaints Eyes: no complaints ENT: no complaints Respiratory: pain, pleuritic pain Gastrointestinal: no complaints Genitourinary: no complaints Musculoskeletal: swelling Skin: no complaints Neurologic: no complaints Endocrine: no complaints Lymphatic: no complaints Psychological: no complaints Past Medical History Medical History: no pertinent history Past Surgical History Past Surgical Hx: other (Left eye surgery and left arm surgery) Social History Alcohol Use: none Smoking Status: Former smoker Drug Use: none Exam/Review of Systems Vital Signs Vitals Vital Signs Date Time Temp Pulse Resp B/P Pulse Ox O2 Delivery O2 Flow Rate FiO2 12/18/16 08:14 99 12/18/16 07:14 98.1 18 130/71 96 12/16/16 04:38 Room Air 4.0 Nasal Cannula Intake and Output 12/17/16 12/17/16 12/18/16 15:00 23:00 07:00 Intake Total 720 ml Output Total 1350 ml Balance -630 ml Exam Constitutional: alert, distress, oriented, well developed Psych: nl mood/affect, no complaints Respiratory: diminished breath sounds Cardiovascular: nl pulses, other (Tachycardic), regular rate and rhythm Gastrointestinal: nl liver, spleen, non-tender, soft Neurological: LOADING RACK SUPERVISOR II-XII intact, nl mental status, nl speech, nl strength Results Result Diagram: 12/17/16 1002 12/17/16 1002 Medications Medications Current Medications Ondansetron HCl (Zofran Inj) 4 mg Q6H PRN IV NAUSEA AND/OR VOMITING Last administered on 12/18/16 08:49; Admin Dose 4 MG; Start 12/16/16 at 07:30 Pantoprazole (Protonix Iv) 40 mg DAILY@06 IV Last administered on 12/18/16 06: 15; Admin Dose 40 MG; Start 12/17/16 at 06:00 Enoxaparin Sodium 90 mg 90 mg Q12 SC Last administered on 12/18/16 09:01; Admin Dose 90 MG; Start 12/16/16 at 09:00 Levofloxacin/ Dextrose (Levaquin 500mg/ D5W 100 ml (Pmx)) 100 ml @ 100 mls/hr DAILY IVPB Last administered on 12/18/16 08:49; Admin Dose 100 MLS/HR; Start at 09:00 Hydralazine HCl (Apresoline) 25 mg Q8H PRN PO ELEVATED BLOOD PRESSURE Last administered on 12/18/16 06:16; Admin Dose 25 MG; Start 12/17/16 at 04:00 Hydromorphone HCl (Dilaudid SURGICAL DRESSING MAKER) MG/HR CONTINUOUS R... Q4PCA IV Last administered on 12/18/16 09:16; Admin Dose 6 MG; Start 12/17/16 at 11:30 Senna (Senokot) 2 tab BID PO Last administered on 12/18/16 08:49; Admin Dose 2 TAB; Start 12/17/16 at 21:00 Magnesium Hydroxide (Milk Of Mag) 30 ml DAILY PRN PO CONSTIPATION; Start at 20:30 Bisacodyl (Dulcolax) 10 mg DAILY PRN PO CONSTIPATION; Start 12/17/16 at 20:30 ОЛЬГА WELLS Dec 18, 2016 10:50
--- NOTE | 2016-12-18 10:52 | CONS ---
Date/Time of Note Date/Time of Note DATE: 12/18/16 TIME: 10:50 Assessment/Plan Assessment/Plan Chief Complaint/Hosp Course Very pleasant 46-year-old gentleman with a history of trauma to his left lower extremity thereafter felt that he developed a cramp some days thereafter and increasing shortness of breath. Denied nausea vomiting PND orthopnea, there is no past medical history of coronary heart disease, patient is a non-smoker nondrinker was diagnosed with bilateral pulmonary emboli.. Patient complains of severe right chest wall discomfort with sharp pain with radiations to his right shoulder, rated 10/10 with current pain medications 7/10. Patient is no past medical history of illicit drug abuse his pain is clinically significant he is unable to take deep breaths or cough without extreme discomfort. Is affecting his physical function mood sleeping patterns overall function. With current medications denies pruritus denies sweating he has not asked for frequent dosings or change in the amount of pain medication is receiving, he is not using his pain medications and response to situational stressor. Problems: Additional Assessment/Plan He feels better today on Dilaudid CASING MAN, able to take deep breaths cough and did some minimal ambulation. Slept reasonably well last night pain is rated at 4/ 10 compared to 10/10 on admission. He is still coughing up minor amounts of bloody mucus. Consultation Date/Type/Reason Admit Date/Time Dec 16, 2016 at 07:11 Initial Consult Date 12/17/16 Type of Consultation: Pain management Referring Provider: DANIEL UNDERWOOD Exam/Review of Systems Vital Signs Vitals Vital Signs Date Time Temp Pulse Resp B/P Pulse Ox O2 Delivery O2 Flow Rate FiO2 12/18/16 08:14 99 12/18/16 07:14 98.1 18 130/71 96 12/16/16 04:38 Room Air 4.0 Nasal Cannula Intake and Output 12/17/16 12/17/16 12/18/16 15:00 23:00 07:00 Intake Total 720 ml Output Total 1350 ml Balance -630 ml Exam Neurological: CENTRAL SUPPLY CLERK II-XII intact, nl mental status, nl speech, nl strength Results Result Diagram: 12/17/16 1002 12/17/16 1002 Medications Medications Current Medications Ondansetron HCl (Zofran Inj) 4 mg Q6H PRN IV NAUSEA AND/OR VOMITING Last administered on 12/18/16 08:49; Admin Dose 4 MG; Start 12/16/16 at 07:30 Pantoprazole (Protonix Iv) 40 mg DAILY@06 IV Last administered on 12/18/16 06: 15; Admin Dose 40 MG; Start 12/17/16 at 06:00 Enoxaparin Sodium 90 mg 90 mg Q12 SC Last administered on 12/18/16 09:01; Admin Dose 90 MG; Start 12/16/16 at 09:00 Levofloxacin/ Dextrose (Levaquin 500mg/ D5W 100 ml (Pmx)) 100 ml @ 100 mls/hr DAILY IVPB Last administered on 12/18/16 08:49; Admin Dose 100 MLS/HR; Start at 09:00 Hydralazine HCl (Apresoline) 25 mg Q8H PRN PO ELEVATED BLOOD PRESSURE Last administered on 12/18/16 06:16; Admin Dose 25 MG; Start 12/17/16 at 04:00 Hydromorphone HCl (Dilaudid CASING MAN) MG/HR CONTINUOUS R... Q4PCA IV Last administered on 12/18/16 09:16; Admin Dose 6 MG; Start 12/17/16 at 11:30 Senna (Senokot) 2 tab BID PO Last administered on 12/18/16 08:49; Admin Dose 2 TAB; Start 12/17/16 at 21:00 Magnesium Hydroxide (Milk Of Mag) 30 ml DAILY PRN PO CONSTIPATION; Start at 20:30 Bisacodyl (Dulcolax) 10 mg DAILY PRN PO CONSTIPATION; Start 12/17/16 at 20:30 ОЛЬГА WELLS Dec 18, 2016 10:52
[2016-12-18 12:42] LABS: BASOPHILS % 0.5 % (0.0-2.0); EOSINOPHILS # 0.1 10^3/ul (0.0-0.5); EOSINOPHILS % 1.3 % (0.0-7.0); HEMATOCRIT 50.2 % (42.0-52.0); HEMOGLOBIN 16.7 g/dl (14.0-18.0); LYMPHOCYTES # 1.4 10^3/ul (0.8-2.9); LYMPHOCYTES % 17.9 % (15.0-51.0); MEAN CORPUSCULAR HEMOGLOBIN 31.8 pg (29.0-33.0); MEAN CORPUSCULAR HGB CONC 33.3 g/dl (32.0-37.0); MEAN CORPUSCULAR VOLUME 95.6 fl (82.0-101.0); MEAN PLATELET VOLUME 9.7 fl (7.4-10.4); MONOCYTE # 0.7 10^3/ul (0.3-0.9); MONOCYTES % 9.3 % (0.0-11.0); NEUTROPHIL # 5.6 10^3/ul (1.6-7.5); NEUTROPHILS % 70.6 % (39.0-77.0); PLATELET COUNT 205 10^3/UL (140-415); RED BLOOD COUNT 5.25 10^6/ul (4.70-6.10); WHITE BLOOD COUNT 7.9 10^3/ul (4.8-10.8)
[2016-12-18 13:07] LABS: CALCIUM 9.5 mg/dl (8.4-10.2); CREATININE 0.7 mg/dl (0.61-1.24); POTASSIUM 4.2 mmol/L (3.5-5.1)
--- NOTE | 2016-12-18 15:34 | CONS ---
Date/Time of Note Date/Time of Note DATE: 12/18/16 TIME: 15:33 Consult Date/Type/Reason Admit Date/Time Dec 16, 2016 at 07:11 Initial Consult Date 12/17/16 Type of Consultation: Pulmonary Ordering Provider: DANIEL UNDERWOOD Subjective Patient still has pleuritic pain right side of the chest. Objective Vital Signs Date Time Temp Pulse Resp B/P Pulse Ox O2 Delivery O2 Flow Rate FiO2 12/18/16 15:23 97.2 74 19 136/75 96 12/16/16 04:38 Room Air 4.0 Nasal Cannula Intake and Output 12/17/16 12/17/16 12/18/16 15:00 23:00 07:00 Intake Total 720 ml Output Total 1350 ml Balance -630 ml Exam GENERAL: Well-nourished well-developed gentleman comfortable at rest VITAL SIGNS: per chart NECK: Supple. No JVD or lymphadenopathy. CARDIAC EXAM: S1, S2. No added sounds or murmurs. CHEST: clear bilaterally, No added sounds, rales or wheezes ABDOMEN: Soft, nontender. No guarding or rebound. EXTREMITIES: No cyanosis, clubbing or edema. NEUROLOGIC: Generalized weakness. No focal deficits. Results/Medications Result Diagram: 12/18/16 1140 12/18/16 1140 Results 24 hrs Laboratory Tests Test 12/18/16 11:40 White Blood Count 7.9 # Red Blood Count 5.25 Hemoglobin 16.7 Hematocrit 50.2 Mean Corpuscular Volume 95.6 Mean Corpuscular Hemoglobin 31.8 Mean Corpuscular Hemoglobin Concent 33.3 Red Cell Distribution Width 13.0 Platelet Count 205 Mean Platelet Volume 9.7 Neutrophils % 70.6 Lymphocytes % 17.9 Monocytes % 9.3 Eosinophils % 1.3 Basophils % 0.5 Nucleated Red Blood Cells % 0.0 Neutrophils # 5.6 Lymphocytes # 1.4 Monocytes # 0.7 Eosinophils # 0.1 Basophils # 0.0 Nucleated Red Blood Cells # 0.0 Sodium Level 140 Potassium Level 4.2 Chloride Level 99 Carbon Dioxide Level 20 L Anion Gap 25 H Blood Urea Nitrogen 8 Creatinine 0.70 Glucose Level 90 Calcium Level 9.5 Medications Current Medications Ondansetron HCl (Zofran Inj) 4 mg Q6H PRN IV NAUSEA AND/OR VOMITING Last administered on 12/18/16t 13:24; Admin Dose 4 MG; Start 12/16/16 at 07:30 Pantoprazole (Protonix Iv) 40 mg DAILY@06 IV Last administered on 12/18/16 06: 15; Admin Dose 40 MG; Start 12/17/16 at 06:00 Enoxaparin Sodium 90 mg 90 mg Q12 SC Last administered on 12/18/16 09:01; Admin Dose 90 MG; Start 12/16/16 at 09:00 Levofloxacin/ Dextrose (Levaquin 500mg/ D5W 100 ml (Pmx)) 100 ml @ 100 mls/hr DAILY IVPB Last administered on 12/18/16 08:49; Admin Dose 100 MLS/HR; Start at 09:00 Hydralazine HCl (Apresoline) 25 mg Q8H PRN PO ELEVATED BLOOD PRESSURE Last administered on 12/18/16 06:16; Admin Dose 25 MG; Start 12/17/16 at 04:00 Hydromorphone HCl (Dilaudid CONTRACT GRAPHIC DESIGNER) MG/HR CONTINUOUS R... Q4PCA IV Last administered on 12/18/16 14:32; Admin Dose 6 MG; Start 12/17/16 at 11:30 Senna (Senokot) 2 tab BID PO Last administered on 12/18/16 08:49; Admin Dose 2 TAB; Start 12/17/16 at 21:00 Magnesium Hydroxide (Milk Of Mag) 30 ml DAILY PRN PO CONSTIPATION; Start at 20:30 Bisacodyl (Dulcolax) 10 mg DAILY PRN PO CONSTIPATION; Start 12/17/16 at 20:30 Assessment/Plan Chief Complaint/Hosp Course Additional Assessment/Plan 1. Acute PE in patient with likely DVT for a month or longer. Appears unprovoked as the DVT likely was a cause of his LE issues and not a sprain. ECHO normal 2. B/L lower lobe infiltrates--RLL can be due to infarction, however, LLL there are no PE's 3. Hemoptysis--due to #1 RECS: 1. Full dose lovenox Q12 2. Start apixibam 3. No signs of submassive PE 4. Hypercoag w/u initiated 5. Monitor and quantify all hemoptysis 6. Cont Abx. 7. Will need outpatient hematology oncology follow-up Problems: YAYA VALLEJO MD, [facility] Dec 18, 2016 15:34
[2016-12-18] MEDS: BISACODYL (EC) 5 MG TAB PO PRN (17:51)
--- NOTE | 2016-12-18 18:56 | PN ---
Date/Time of Note Date/Time of Note DATE: 12/18/16 TIME: 18:55 Assessment/Plan VTE Prophylaxis VTE Prophylaxis Intervention: other (Factor Xa inhibitors.) Lines/Catheters IV C[facility]ter Type (from [facility]): Peripheral IV Assessment/Plan Chief Complaint/Hosp Course 1. Bilateral pulmonary embolism. The patient was on therapeutic anticoagulation. The patient to be switched to oral anticoagulation. Being followed by pulmonology 2. Left lower extremity DVT. Management as per #1. The patient being followed by hematology and is undergoing hypercoagulable workup. 3. Pleuritic chest pain secondary to B/L PE. The patient's analgesics are being managed by pain management team. The patient currently on Dilaudid BROOMCORN SCRAPER. 4. Community-acquired pneumonia. Continue antibiotics. 5. Fluids, electrolytes, and nutrition. Regular diet. 6. DVT prophylaxis. On therapeutic anticoagulation. 7. Plan. Continue current management. Weaning off pain medications as per pain management team. The patient has positive blood cultures in 1 sample. This could be most probably contaminant. We will repeat blood cultures 2. Will obtain infectious disease consult. Case discussed with Dr. Decker. Problems: Subjective 24 Hr Interval Summary Free Text/Dictation Complains of right-sided chest wall pain, worse with inspiration. Remains on Dilaudid BROOMCORN SCRAPER. Exam/Review of Systems Vital Signs Vitals Vital Signs Date Time Temp Pulse Resp B/P Pulse Ox O2 Delivery O2 Flow Rate FiO2 12/18/16 16:13 99 12/18/16 15:23 97.2 19 136/75 96 12/16/16 04:38 Room Air 4.0 Nasal Cannula Intake and Output 12/17/16 12/17/16 12/18/16 15:00 23:00 07:00 Intake Total 720 ml Output Total 1350 ml Balance -630 ml Exam General: Adequately build 46 year-old male lying in bed in no apparent distress. HEENT: Normocephalic, atraumatic. Eyes: Anicteric sclerae, conjunctivae clear. ENT: Nasal septum midline, oral mucosa moist. Neck supple, no JVD noticed. Respiratory: Bilaterally clear breath sounds. No use of accessory muscles of respiration. No adventitious breath sounds. Cardiovascular: S1, S2 heard. No murmurs or gallops. Abdomen: Soft, nontender, and nondistended. Bowel sounds positive in all 4 quadrants. Genitourinary: Deferred. Extremities: No cyanosis, no clubbing, no edema. Peripheral pulses palpable. Neurologic: Cranial nerves II through XII grossly intact. The patient is awake, alert, and oriented. Skin: Normal skin turgor. No skin rashes. Results Result Diagram: 12/18/16 1140 12/18/16 1140 Results 24 hrs Laboratory Tests Test 12/18/16 11:40 White Blood Count 7.9 # Red Blood Count 5.25 Hemoglobin 16.7 Hematocrit 50.2 Mean Corpuscular Volume 95.6 Mean Corpuscular Hemoglobin 31.8 Mean Corpuscular Hemoglobin Concent 33.3 Red Cell Distribution Width 13.0 Platelet Count 205 Mean Platelet Volume 9.7 Neutrophils % 70.6 Lymphocytes % 17.9 Monocytes % 9.3 Eosinophils % 1.3 Basophils % 0.5 Nucleated Red Blood Cells % 0.0 Neutrophils # 5.6 Lymphocytes # 1.4 Monocytes # 0.7 Eosinophils # 0.1 Basophils # 0.0 Nucleated Red Blood Cells # 0.0 Sodium Level 140 Potassium Level 4.2 Chloride Level 99 Carbon Dioxide Level 20 L Anion Gap 25 H Blood Urea Nitrogen 8 Creatinine 0.70 Glucose Level 90 Calcium Level 9.5 Medications Medications Current Medications Ondansetron HCl (Zofran Inj) 4 mg Q6H PRN IV NAUSEA AND/OR VOMITING Last administered on 12/18/16 17:39; Admin Dose 4 MG; Start 12/16/16 at 07:30 Pantoprazole (Protonix Iv) 40 mg DAILY@06 IV Last administered on 12/18/16 06: 15; Admin Dose 40 MG; Start 12/17/16 at 06:00 Enoxaparin Sodium 90 mg 90 mg Q12 SC Last administered on 12/18/16 09:01; Admin Dose 90 MG; Start 12/16/16 at 09:00; Stop 12/18/16 at 23:00 Levofloxacin/ Dextrose (Levaquin 500mg/ D5W 100 ml (Pmx)) 100 ml @ 100 mls/hr DAILY IVPB Last administered on 12/18/16 08:49; Admin Dose 100 MLS/HR; Start at 09:00 Hydralazine HCl (Apresoline) 25 mg Q8H PRN PO ELEVATED BLOOD PRESSURE Last administered on 12/18/16 06:16; Admin Dose 25 MG; Start 12/17/16 at 04:00 Hydromorphone HCl (Dilaudid BROOMCORN SCRAPER) MG/HR CONTINUOUS R... Q4PCA IV Last administered on 12/18/16 14:32; Admin Dose 6 MG; Start 12/17/16 at 11:30 Senna (Senokot) 2 tab BID PO Last administered on 12/18/16 08:49; Admin Dose 2 TAB; Start 12/17/16 at 21:00 Magnesium Hydroxide (Milk Of Mag) 30 ml DAILY PRN PO CONSTIPATION; Start at 20:30 Bisacodyl (Dulcolax) 10 mg DAILY PRN PO CONSTIPATION Last administered on 17:51; Admin Dose 10 MG; Start 12/17/16 at 20:30 Apixaban (Eliquis) 10 mg BID PO ; Start 12/18/16 at 21:00; Stop 12/25/16 at 09:01 Apixaban (Eliquis) 5 mg BID PO ; Start 12/25/16 at 21:00 RUBIO AGUERO NP Dec 18, 2016 18:56
--- NOTE | 2016-12-18 19:49 | CONS ---
Date/Time of Note Date/Time of Note DATE: 12/18/16 TIME: 19:48 Consultation Date/Type/Reason Admit Date/Time Dec 16, 2016 at 07:11 Date of Consultation: Dec 18, 2016 Type of Consultation: ID Reason for Consultation Antibiotic management Constitutional: no complaints Eyes: no complaints ENT: no complaints Respiratory: pain, pleuritic pain Gastrointestinal: no complaints Genitourinary: no complaints Musculoskeletal: swelling Skin: no complaints Neurologic: no complaints Endocrine: no complaints Lymphatic: no complaints Psychological: nl mood/affect, no complaints Past Medical History Medical History: no pertinent history Past Surgical History Past Surgical Hx: other (Left eye surgery and left arm surgery) Social History Alcohol Use: none Smoking Status: Former smoker Drug Use: none Exam/Review of Systems Vital Signs Vitals Vital Signs Date Time Temp Pulse Resp B/P Pulse Ox O2 Delivery O2 Flow Rate FiO2 12/18/16 19:24 98.1 77 18 142/82 96 12/16/16 04:38 Room Air 4.0 Nasal Cannula Intake and Output 12/17/16 12/17/16 12/18/16 15:00 23:00 07:00 Intake Total 720 ml Output Total 1350 ml Balance -630 ml Results Result Diagram: 12/18/16 1140 12/18/16 1140 Results 24 hrs Laboratory Tests Test 12/18/16 11:40 White Blood Count 7.9 # Red Blood Count 5.25 Hemoglobin 16.7 Hematocrit 50.2 Mean Corpuscular Volume 95.6 Mean Corpuscular Hemoglobin 31.8 Mean Corpuscular Hemoglobin Concent 33.3 Red Cell Distribution Width 13.0 Platelet Count 205 Mean Platelet Volume 9.7 Neutrophils % 70.6 Lymphocytes % 17.9 Monocytes % 9.3 Eosinophils % 1.3 Basophils % 0.5 Nucleated Red Blood Cells % 0.0 Neutrophils # 5.6 Lymphocytes # 1.4 Monocytes # 0.7 Eosinophils # 0.1 Basophils # 0.0 Nucleated Red Blood Cells # 0.0 Sodium Level 140 Potassium Level 4.2 Chloride Level 99 Carbon Dioxide Level 20 L Anion Gap 25 H Blood Urea Nitrogen 8 Creatinine 0.70 Glucose Level 90 Calcium Level 9.5 Medications Medications Current Medications Ondansetron HCl (Zofran Inj) 4 mg Q6H PRN IV NAUSEA AND/OR VOMITING Last administered on 12/18/16t 17:39; Admin Dose 4 MG; Start 12/16/16 at 07:30 Pantoprazole (Protonix Iv) 40 mg DAILY@06 IV Last administered on 12/18/16 06: 15; Admin Dose 40 MG; Start 12/17/16 at 06:00 Enoxaparin Sodium 90 mg 90 mg Q12 SC Last administered on 12/18/16 09:01; Admin Dose 90 MG; Start 12/16/16 at 09:00; Stop 12/18/16 at 23:00 Levofloxacin/ Dextrose (Levaquin 500mg/ D5W 100 ml (Pmx)) 100 ml @ 100 mls/hr DAILY IVPB Last administered on 12/18/16 08:49; Admin Dose 100 MLS/HR; Start at 09:00 Hydralazine HCl (Apresoline) 25 mg Q8H PRN PO ELEVATED BLOOD PRESSURE Last administered on 12/18/16 06:16; Admin Dose 25 MG; Start 12/17/16 at 04:00 Hydromorphone HCl (Dilaudid TEACHER MUSIC) MG/HR CONTINUOUS R... Q4PCA IV Last administered on 12/18/16 14:32; Admin Dose 6 MG; Start 12/17/16 at 11:30 Senna (Senokot) 2 tab BID PO Last administered on 12/18/16 08:49; Admin Dose 2 TAB; Start 12/17/16 at 21:00 Magnesium Hydroxide (Milk Of Mag) 30 ml DAILY PRN PO CONSTIPATION; Start at 20:30 Bisacodyl (Dulcolax) 10 mg DAILY PRN PO CONSTIPATION Last administered on 17:51; Admin Dose 10 MG; Start 12/17/16 at 20:30 Apixaban (Eliquis) 10 mg BID PO ; Start 12/18/16 at 21:00; Stop 12/25/16 at 09:01 Apixaban (Eliquis) 5 mg BID PO ; Start 12/25/16 at 21:00 KASEY RODRIGUEZ MD Dec 18, 2016 19:49
[2016-12-18] MEDS: APIXABAN 5 MG TABLET PO SCH (20:38)
[2016-12-19] VITALS (12 sets, daily range): BP systolic 128–154; BP diastolic 81–95; PULSE 60–130; RESP 17–20
[2016-12-19] MEDS: HYDROmorphONE 0.2 MG/ML PCA IV SCH ×3 (02:47→15:59)
--- NOTE | 2016-12-19 04:13 | CONS ---
DATE OF ADMISSION: 12/16/2016 DATE OF CONSULTATION: 12/18/2016 REASON FOR CONSULTATION: Antibiotic management. HISTORY OF PRESENT ILLNESS: Jose Angel Nguyen is a 46-year-old male with no significant past medical history who came to the emergency room with shortness of breath, cough, hemoptysis, and chest pain. The chest pain and shortness of breath are worse with exertion. There is no radiation of the pain. He has no nausea, vomiting, or diaphoresis. He was tachycardic. He had a heart rate of 116. A CT pulmonary angiogram showed pulmonary emboli, bilateral lower lobe and right middle lobe and lingular atelectasis or infiltrates, trace right pleural effusion. Lower extremity venous studies showed DVT. He was placed on Lovenox in the emergency room. The patient had a left ankle injury approximately 2 weeks ago when he was lifting a heavy object and possibly twisted his ankle. Since then, he has not been active. He had x-rays of the ankle on November 28, which showed no fractures. On admission, his white count was 13.3, H and H of 16 and 47.9, platelet count 288,000. BUN and creatinine 9/0.97. Glucose 97. PAST SURGICAL HISTORY: He had surgery on his left thigh and left arm surgery. HOSPITAL COURSE: The patient was seen by Dr. Ramirez on the who felt he had acute PE with DVT for a month or longer. The DVT likely was the cause of his left lower extremity issues, not a sprain. Bilateral lower lobe infiltrates, right lower lobe, could be due to infarction. However, in left lower lobe, there are no PEs. He is on Lovenox. Currently, his white count is down to 7.9, H and H 16.7, 50.2, platelet count 205,000. BUN and creatinine 8/0.7. Imaging: His chest x-ray shows hyperinflation of lungs with bibasilar atelectasis and possible infiltrates, possible very small left pleural effusion. Microbiology, he had a blood culture which was positive, 1 out of 2. He is currently on no antibiotics. He is also currently afebrile. PAST MEDICAL HISTORY: Operations as outlined. FAMILY HISTORY: Noncontributory. SOCIAL HISTORY: Does not smoke, drink, or abuse drugs. ALLERGIES: NONE TO PENICILLIN, SULFA, OR FOODS. MEDICATION: Per chart. REVIEW OF SYSTEMS: As per HPI. PHYSICAL EXAMINATION: GENERAL: The patient is a well-developed, well-nourished male, alert, responsive, in no acute distress. VITAL SIGNS: Stable. He is afebrile. SKIN: Without generalized rash. HEENT: Within normal limits. NECK: Supple. Lymph nodes nonpalpable. CHEST: Decreased breath sounds at the bases. HEART: Without murmur or gallop. ABDOMEN: Soft and nontender without organosplenomegaly or masses. EXTREMITIES: Without cyanosis, clubbing, or edema. Pulses 1+ in distal extremities. RECTAL/GENITAL EXAM: Deferred. NEUROLOGICAL: No focal neurological abnormalities. IMPRESSION AND PLAN: The patient has left lower extremity deep vein thromboses. According to Dr. Castillo, he is on Levaquin for community-acquired pneumonia. He has had 4 sets of blood cultures. Two sets were drawn today to which I concur. We probably can hold off on antibiotics for the time being. If there is any indication that the patient has developed another positive blood culture, then we will start him on vancomycin. I will dictate my findings to the hospitalist as well as Dr. Ramirez, Dr. Cohen, Dr. Kapoor, Dr. Lund. Dictated By: Grabiel Prather MD [email or web address] /Document#: [id number]
[2016-12-19] MEDS: PANTOPRAZOLE 40 MG INJ IV SCH (05:53)
[2016-12-19 08:31] LABS: BASOPHILS % 0.6 % (0.0-2.0); EOSINOPHILS # 0.2 10^3/ul (0.0-0.5); EOSINOPHILS % 2.8 % (0.0-7.0); HEMATOCRIT 47.4 % (42.0-52.0); HEMOGLOBIN 15.8 g/dl (14.0-18.0); LYMPHOCYTES # 1.9 10^3/ul (0.8-2.9); LYMPHOCYTES % 26.5 % (15.0-51.0); MEAN CORPUSCULAR HEMOGLOBIN 31.4 pg (29.0-33.0); MEAN CORPUSCULAR HGB CONC 33.3 g/dl (32.0-37.0); MEAN CORPUSCULAR VOLUME 94.2 fl (82.0-101.0); MEAN PLATELET VOLUME 9.4 fl (7.4-10.4); MONOCYTE # 0.7 10^3/ul (0.3-0.9); MONOCYTES % 10.1 % (0.0-11.0); NEUTROPHIL # 4.3 10^3/ul (1.6-7.5); NEUTROPHILS % 59.4 % (39.0-77.0); PLATELET COUNT 251 10^3/UL (140-415); RED BLOOD COUNT 5.03 10^6/ul (4.70-6.10); RED CELL DISTRIBUTION WIDTH 12.6 % (11.5-14.5); WHITE BLOOD COUNT 7.2 10^3/ul (4.8-10.8)
[2016-12-19] MEDS: ONDANSETRON 4 MG INJ IV PRN (08:36)
[2016-12-19] MEDS: BISACODYL (EC) 5 MG TAB PO PRN (08:37)
[2016-12-19] MEDS: SENNA TAB PO SCH ×2 (08:37→22:07)
[2016-12-19] MEDS: LEVOFLOXACIN 500MG/D5W (PMX) 100 ML IVPB SCH (08:37)
[2016-12-19] MEDS: APIXABAN 5 MG TABLET PO SCH ×2 (08:37→22:07)
[2016-12-19 08:49] LABS: CALCIUM 9.4 mg/dl (8.4-10.2); CREATININE 0.74 mg/dl (0.61-1.24); POTASSIUM 4.1 mmol/L (3.5-5.1)
[2016-12-19 09:30] LABS: CHOL/HDL RATIO 4.5 RATIO; MAGNESIUM 1.9 mg/dl (1.7-2.5); PHOSPHORUS 3.9 mg/dl (2.5-4.9)
[2016-12-19 10:00] LABS: THYROID STIMULATING HORMONE 2.67 MIU/L (0.465-4.680)
--- NOTE | 2016-12-19 10:09 | CONS ---
Date/Time of Note Date/Time of Note DATE: 12/19/16 TIME: 10:04 Assessment/Plan Assessment/Plan Chief Complaint/Hosp Course #LLE DVT - per pulmonary this likely preceded the ankle sprain and appears to have been unprovoked -hypercoagulable workup sent at this time . will follow up FVL, PTGM, Protein C and S levels, AT III levels, and r/o antiphospholipid syndrome -Eliquis started at 10mg BID. after 7 days can decrease to 5 mg BID -based on hypercoag workup we will make our recommendations on whether or not patient will need life ling anticoagulation. #Acute PE in RLL with segmental PE - continue anticoagulation as above. #Pneumonia -continue antibiotics per ID -cont Dilaudid SALESPERSON TOY TRAINS AND ACCESSORIES per primary team # Pain - improved. -cont Dilaudid SALESPERSON TOY TRAINS AND ACCESSORIES Problems: (1) Left leg DVT Status: Acute Qualifiers: Affected thrombotic vein of extremity: unspecified lower extremity proximal vein Chronicity: unspecified Qualified Code: I82.4Y2 - Deep vein thrombosis (DVT) of proximal vein of left lower extremity, unspecified chronicity (2) Pulmonary embolism Status: Acute Qualifiers: Chronicity: acute Acute cor pulmonale presence: without acute cor pulmonale Consultation Date/Type/Reason Admit Date/Time Dec 16, 2016 at 07:11 Initial Consult Date 12/18/16 Type of Consultation: Hematology Reason for Consultation LLE DVT and PE Referring Provider: DANIEL UNDERWOOD 24 HR Interval Summary Free Text/Dictation pt feels nauseous this morning. has started taking Eliquis 10mg BID Constitutional: poor po Exam/Review of Systems Vital Signs Vitals Vital Signs Date Time Temp Pulse Resp B/P Pulse Ox O2 Delivery O2 Flow Rate FiO2 12/19/16 08:14 130 12/19/16 07:32 98.4 19 140/91 97 12/16/16 04:38 Room Air 4.0 Nasal Cannula Intake and Output 12/18/16 12/18/16 12/19/16 15:00 23:00 07:00 Intake Total 1300 ml 700 ml Output Total 2000 ml Balance 1300 ml -1300 ml Exam Constitutional: alert Head: normocephalic ENMT: nl external ears & nose Neck: non-tender, supple Respiratory: clear to auscultation Cardiovascular: nl pulses, regular rate and rhythm Gastrointestinal: soft Musculoskeletal: nl extremities to inspection, nl gait and stance Extremities: normal pulses Neurological: ELECTRONICS MECHANIC APPRENTICE II-XII intact Results Result Diagram: 12/19/16 0712 12/19/16 0711 Results 24 hrs Laboratory Tests Test 12/18/16 11:40 12/19/16 07:11 12/19/16 07:12 White Blood Count 7.9 # 7.2 Red Blood Count 5.25 5.03 Hemoglobin 16.7 15.8 Hematocrit 50.2 47.4 Mean Corpuscular Volume 95.6 94.2 Mean Corpuscular Hemoglobin 31.8 31.4 Mean Corpuscular Hemoglobin Concent 33.3 33.3 Red Cell Distribution Width 13.0 12.6 Platelet Count 205 251 # Mean Platelet Volume 9.7 9.4 Neutrophils % 70.6 59.4 Lymphocytes % 17.9 26.5 Monocytes % 9.3 10.1 Eosinophils % 1.3 2.8 Basophils % 0.5 0.6 Nucleated Red Blood Cells % 0.0 0.0 Neutrophils # 5.6 4.3 Lymphocytes # 1.4 1.9 Monocytes # 0.7 0.7 Eosinophils # 0.1 0.2 Basophils # 0.0 0.0 Nucleated Red Blood Cells # 0.0 0.0 Sodium Level 140 140 Potassium Level 4.2 4.1 Chloride Level 99 98 Carbon Dioxide Level 20 L 25 Anion Gap 25 H 21 H Blood Urea Nitrogen 8 7 Creatinine 0.70 0.74 Glucose Level 90 93 Calcium Level 9.5 9.4 Free Thyroxine 1.52 Hemoglobin A1c 4.8 Phosphorus Level 3.9 Magnesium Level 1.9 Triglycerides Level 91 Cholesterol Level 185 LDL Cholesterol, Calculated 126 HDL Cholesterol 41 Cholesterol/HDL Ratio 4.5 Thyroid Stimulating Hormone (TSH) 2.670 Medications Medications Current Medications Ondansetron HCl (Zofran Inj) 4 mg Q6H PRN IV NAUSEA AND/OR VOMITING Last administered on 12/19/16 08:36; Admin Dose 4 MG; Start 12/16/16 at 07:30 Pantoprazole 40 mg 40 mg DAILY@06 IV Last administered on 12/19/16 05:53; Admin Dose 40 MG; Start 12/17/16 at 06:00 Levofloxacin/ Dextrose (Levaquin 500mg/ D5W 100 ml (Pmx)) 100 ml @ 100 mls/hr DAILY IVPB Last administered on 12/19/16 08:37; Admin Dose 100 MLS/HR; Start at 09:00 Hydralazine HCl (Apresoline) 25 mg Q8H PRN PO ELEVATED BLOOD PRESSURE Last administered on 12/18/16 06:16; Admin Dose 25 MG; Start 12/17/16 at 04:00 Hydromorphone HCl (Dilaudid SALESPERSON TOY TRAINS AND ACCESSORIES) MG/HR CONTINUOUS R... Q4PCA IV Last administered on 12/19/16 02:47; Admin Dose 6 MG; Start 12/17/16 at 11:30 Senna (Senokot) 2 tab BID PO Last administered on 12/19/16 08:37; Admin Dose 2 TAB; Start 12/17/16 at 21:00 Magnesium Hydroxide (Milk Of Mag) 30 ml DAILY PRN PO CONSTIPATION; Start at 20:30 Bisacodyl (Dulcolax) 10 mg DAILY PRN PO CONSTIPATION Last administered on 08:37; Admin Dose 10 MG; Start 12/17/16 at 20:30 Apixaban (Eliquis) 10 mg BID PO Last administered on 12/19/16 08:37; Admin Dose 10 MG; Start 12/18/16 at 21:00; Stop 12/25/16 at 09:01 Apixaban (Eliquis) 5 mg BID PO ; Start 12/25/16 at 21:00 ROSE RIGGS M.D. Dec 19, 2016 10:09
--- NOTE | 2016-12-19 14:30 | PN ---
Date/Time of Note Date/Time of Note DATE: 12/19/16 TIME: 14:28 Assessment/Plan VTE Prophylaxis VTE Prophylaxis Intervention: other (Factor Xa inhibitors) Lines/Catheters IV Catheter Type (from [facility]): Peripheral IV Assessment/Plan Chief Complaint/Hosp Course 1. Bilateral pulmonary embolism. The patient was on therapeutic anticoagulation. The patient to be switched to oral anticoagulation. Being followed by pulmonology 2. Left lower extremity DVT. Management as per #1. The patient being followed by hematology and is undergoing hypercoagulable workup. 3. Pleuritic chest pain. The patient's analgesics are being managed by pain management team. 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 4. Community-acquired pneumonia. Continue antibiotics. 5. Fluids, electrolytes, and nutrition. Regular diet. 6. DVT prophylaxis. On therapeutic anticoagulation. 7. Plan. Continue current management. Weaning off pain medications as per pain management team. The patient has positive blood cultures in 1 sample. This could be most probably contaminant. Repeat blood cultures 2 pending. Being followed by infectious disease consult. Case discussed with Dr. Castillo. Problems: Subjective 24 Hr Interval Summary Free Text/Dictation The patient was up and walking around the unit today. Exam/Review of Systems Vital Signs Vitals Vital Signs Date Time Temp Pulse Resp B/P Pulse Ox O2 Delivery O2 Flow Rate FiO2 12/19/16 12:16 98 12/19/16 11:30 98.5 20 136/87 96 12/16/16 04:38 Room Air 4.0 Nasal Cannula Intake and Output 12/18/16 12/18/16 12/19/16 15:00 23:00 07:00 Intake Total 1300 ml 700 ml Output Total 2000 ml Balance 1300 ml -1300 ml Exam General: Adequately build 46 year-old male lying in bed in no apparent distress. HEENT: Normocephalic, atraumatic. Eyes: Anicteric sclerae, conjunctivae clear. ENT: Nasal septum midline, oral mucosa moist. Neck supple, no JVD noticed. Respiratory: Bilaterally clear breath sounds. No use of accessory muscles of respiration. No adventitious breath sounds. Cardiovascular: S1, S2 heard. No murmurs or gallops. Abdomen: Soft, nontender, and nondistended. Bowel sounds positive in all 4 quadrants. Genitourinary: Deferred. Extremities: No cyanosis, no clubbing, no edema. Peripheral pulses palpable. Neurologic: Cranial nerves II through XII grossly intact. The patient is awake, alert, and oriented. Skin: Normal skin turgor. No skin rashes. Results Result Diagram: 12/19/16 0712 12/19/16 0711 Results 24 hrs Laboratory Tests Test 12/19/16 07:11 12/19/16 07:12 Sodium Level 140 Potassium Level 4.1 Chloride Level 98 Carbon Dioxide Level 25 Anion Gap 21 H Blood Urea Nitrogen 7 Creatinine 0.74 Glucose Level 93 Calcium Level 9.4 Free Thyroxine 1.52 White Blood Count 7.2 Red Blood Count 5.03 Hemoglobin 15.8 Hematocrit 47.4 Mean Corpuscular Volume 94.2 Mean Corpuscular Hemoglobin 31.4 Mean Corpuscular Hemoglobin Concent 33.3 Red Cell Distribution Width 12.6 Platelet Count 251 # Mean Platelet Volume 9.4 Neutrophils % 59.4 Lymphocytes % 26.5 Monocytes % 10.1 Eosinophils % 2.8 Basophils % 0.6 Nucleated Red Blood Cells % 0.0 Neutrophils # 4.3 Lymphocytes # 1.9 Monocytes # 0.7 Eosinophils # 0.2 Basophils # 0.0 Nucleated Red Blood Cells # 0.0 Hemoglobin A1c 4.8 Phosphorus Level 3.9 Magnesium Level 1.9 Triglycerides Level 91 Cholesterol Level 185 LDL Cholesterol, Calculated 126 HDL Cholesterol 41 Cholesterol/HDL Ratio 4.5 Thyroid Stimulating Hormone (TSH) 2.670 Medications Medications Current Medications Ondansetron HCl 4 mg 4 mg Q6H PRN IV NAUSEA AND/OR VOMITING Last administered on 12/19/16 08:36; Admin Dose 4 MG; Start 12/16/16 at 07:30 Levofloxacin/ Dextrose (Levaquin 500mg/ D5W 100 ml (Pmx)) 100 ml @ 100 mls/hr DAILY IVPB Last administered on 12/19/16 08:37; Admin Dose 100 MLS/HR; Start at 09:00 Hydralazine HCl (Apresoline) 25 mg Q8H PRN PO ELEVATED BLOOD PRESSURE Last administered on 12/18/16 06:16; Admin Dose 25 MG; Start 12/17/16 at 04:00 Hydromorphone HCl (Dilaudid FAMILY CONSUMER SCIENCE TEACHER) MG/HR CONTINUOUS R... Q4PCA IV Last administered on 12/19/16 10:51; Admin Dose 6 MG; Start 12/17/16 at 11:30 Senna (Senokot) 2 tab BID PO Last administered on 12/19/16 08:37; Admin Dose 2 TAB; Start 12/17/16 at 21:00 Magnesium Hydroxide (Milk Of Mag) 30 ml DAILY PRN PO CONSTIPATION; Start at 20:30 Bisacodyl (Dulcolax) 10 mg DAILY PRN PO CONSTIPATION Last administered on 08:37; Admin Dose 10 MG; Start 12/17/16 at 20:30 Apixaban (Eliquis) 10 mg BID PO Last administered on 12/19/16 08:37; Admin Dose 10 MG; Start 12/18/16 at 21:00; Stop 12/25/16 at 09:01 Apixaban (Eliquis) 5 mg BID PO ; Start 12/25/16 at 21:00 Famotidine (Pepcid Iv) 20 mg BID IV ; Start 12/19/16 at 21:00 RUBIO AGUERO NP Dec 19, 2016 14:30
--- NOTE | 2016-12-19 15:34 | CONS ---
Date/Time of Note Date/Time of Note DATE: 12/19/16 TIME: 15:33 Consult Date/Type/Reason Admit Date/Time Dec 16, 2016 at 07:11 Initial Consult Date 12/17/16 Type of Consultation: Pulmonary Ordering Provider: DANIEL UNDERWOOD Subjective Patient improving today less shortness of breath less pleuritic chest pain. Ambulating without assistance. Still on DINING SERVICE SUPERVISOR. Objective Vital Signs Date Time Temp Pulse Resp B/P Pulse Ox O2 Delivery O2 Flow Rate FiO2 12/19/16 12:16 98 12/19/16 11:30 98.5 20 136/87 96 12/16/16 04:38 Room Air 4.0 Nasal Cannula Intake and Output 12/18/16 12/18/16 12/19/16 14:59 22:59 06:59 Intake Total 1300 ml 700 ml Output Total 2000 ml Balance 1300 ml -1300 ml Exam GENERAL: VITAL SIGNS: per chart NECK: Supple. No JVD or lymphadenopathy. CARDIAC EXAM: S1, S2. No added sounds or murmurs. CHEST: clear bilaterally, No added sounds, rales or wheezes ABDOMEN: Soft, nontender. No guarding or rebound. EXTREMITIES: No cyanosis, clubbing or edema. NEUROLOGIC: Generalized weakness. No focal deficits. Results/Medications Result Diagram: 12/19/16 0712 12/19/16 0711 Results 24 hrs Laboratory Tests Test 12/19/16 07:11 12/19/16 07:12 Sodium Level 140 Potassium Level 4.1 Chloride Level 98 Carbon Dioxide Level 25 Anion Gap 21 H Blood Urea Nitrogen 7 Creatinine 0.74 Glucose Level 93 Calcium Level 9.4 Free Thyroxine 1.52 White Blood Count 7.2 Red Blood Count 5.03 Hemoglobin 15.8 Hematocrit 47.4 Mean Corpuscular Volume 94.2 Mean Corpuscular Hemoglobin 31.4 Mean Corpuscular Hemoglobin Concent 33.3 Red Cell Distribution Width 12.6 Platelet Count 251 # Mean Platelet Volume 9.4 Neutrophils % 59.4 Lymphocytes % 26.5 Monocytes % 10.1 Eosinophils % 2.8 Basophils % 0.6 Nucleated Red Blood Cells % 0.0 Neutrophils # 4.3 Lymphocytes # 1.9 Monocytes # 0.7 Eosinophils # 0.2 Basophils # 0.0 Nucleated Red Blood Cells # 0.0 Hemoglobin A1c 4.8 Phosphorus Level 3.9 Magnesium Level 1.9 Triglycerides Level 91 Cholesterol Level 185 LDL Cholesterol, Calculated 126 HDL Cholesterol 41 Cholesterol/HDL Ratio 4.5 Thyroid Stimulating Hormone (TSH) 2.670 Medications Current Medications Ondansetron HCl 4 mg 4 mg Q6H PRN IV NAUSEA AND/OR VOMITING Last administered on 12/19/16 08:36; Admin Dose 4 MG; Start 12/16/16 at 07:30 Levofloxacin/ Dextrose (Levaquin 500mg/ D5W 100 ml (Pmx)) 100 ml @ 100 mls/hr DAILY IVPB Last administered on 12/19/16 08:37; Admin Dose 100 MLS/HR; Start at 09:00 Hydralazine HCl (Apresoline) 25 mg Q8H PRN PO ELEVATED BLOOD PRESSURE Last administered on 12/18/16 06:16; Admin Dose 25 MG; Start 12/17/16 at 04:00 Hydromorphone HCl (Dilaudid DINING SERVICE SUPERVISOR) MG/HR CONTINUOUS R... Q4PCA IV Last administered on 12/19/16 10:51; Admin Dose 6 MG; Start 12/17/16 at 11:30 Senna (Senokot) 2 tab BID PO Last administered on 12/19/16 08:37; Admin Dose 2 TAB; Start 12/17/16 at 21:00 Magnesium Hydroxide (Milk Of Mag) 30 ml DAILY PRN PO CONSTIPATION; Start at 20:30 Bisacodyl (Dulcolax) 10 mg DAILY PRN PO CONSTIPATION Last administered on 08:37; Admin Dose 10 MG; Start 12/17/16 at 20:30 Apixaban (Eliquis) 10 mg BID PO Last administered on 12/19/16 08:37; Admin Dose 10 MG; Start 12/18/16 at 21:00; Stop 12/25/16 at 09:01 Apixaban (Eliquis) 5 mg BID PO ; Start 12/25/16 at 21:00 Famotidine (Pepcid Iv) 20 mg BID IV ; Start 12/19/16 at 21:00 Assessment/Plan Chief Complaint/Hosp Course Additional Assessment/Plan 1. Acute PE in patient with likely DVT for a month or longer. Appears unprovoked as the DVT likely was a cause of his LE issues and not a sprain. ECHO normal 2. B/L lower lobe infiltrates--RLL can be due to infarction, however, LLL there are no PE's 3. Hemoptysis--due to #1 RECS: 1. Started Eliquis 2. Ambulate as tolerated 3. DC DINING SERVICE SUPERVISOR and transitioned to p.o. pain meds 4. Complete antibiotics 5. Follow-up with hematology oncology as outpatient for hypercoagulable workup. Stable to discharge home from pulmonary standpoint once on p.o. pain meds. Problems: YAYA VALLEJO MD, [facility] Dec 19, 2016 15:34
--- NOTE | 2016-12-19 18:46 | CONS ---
Date/Time of Note Date/Time of Note DATE: 12/19/16 TIME: 18:43 Assessment/Plan Assessment/Plan Chief Complaint/Hosp Course Very pleasant 46-year-old gentleman with a history of trauma to his left lower extremity thereafter felt that he developed a cramp some days thereafter and increasing shortness of breath. Denied nausea vomiting PND orthopnea, there is no past medical history of coronary heart disease, patient is a non-smoker nondrinker was diagnosed with bilateral pulmonary emboli.. Patient complains of severe right chest wall discomfort with sharp pain with radiations to his right shoulder, rated 10/10 with current pain medications 7/10. Patient is no past medical history of illicit drug abuse his pain is clinically significant he is unable to take deep breaths or cough without extreme discomfort. Is affecting his physical function mood sleeping patterns overall function. With current medications denies pruritus denies sweating he has not asked for frequent dosings or change in the amount of pain medication is receiving, he is not using his pain medications and response to situational stressor. Problems: Additional Assessment/Plan Pain is controlled Pulmonary emboli Left lower extremity DVT We will switch to oral Dilaudid today with as needed backup of IV Dilaudid. I have given him ample time to adjust to adjust orals and had a lengthy conversation with him That there is no indication to continue with DEVELOPMENT EXECUTIVE, unfortunately his bargaining with me. Consultation Date/Type/Reason Admit Date/Time Dec 16, 2016 at 07:11 Initial Consult Date 12/17/16 Type of Consultation: Pain management Referring Provider: DANIEL UNDERWOOD Exam/Review of Systems Vital Signs Vitals Vital Signs Date Time Temp Pulse Resp B/P Pulse Ox O2 Delivery O2 Flow Rate FiO2 12/19/16 16:12 109 12/19/16 15:59 20 12/19/16 15:58 98.3 136/83 96 12/16/16 04:38 Room Air 4.0 Nasal Cannula Intake and Output 12/18/16 12/18/16 12/19/16 15:00 23:00 07:00 Intake Total 1300 ml 700 ml Output Total 2000 ml Balance 1300 ml -1300 ml Exam Constitutional: alert, oriented, other (No acute distress not tachypneic, acyanotic), well developed Neurological: CREDIT REPORT CHECKER II-XII intact, nl mental status, nl speech, nl strength Results Result Diagram: 12/19/16 0712 12/19/16 0711 Results 24 hrs Laboratory Tests Test 12/19/16 07:11 12/19/16 07:12 Sodium Level 140 Potassium Level 4.1 Chloride Level 98 Carbon Dioxide Level 25 Anion Gap 21 H Blood Urea Nitrogen 7 Creatinine 0.74 Glucose Level 93 Calcium Level 9.4 Free Thyroxine 1.52 White Blood Count 7.2 Red Blood Count 5.03 Hemoglobin 15.8 Hematocrit 47.4 Mean Corpuscular Volume 94.2 Mean Corpuscular Hemoglobin 31.4 Mean Corpuscular Hemoglobin Concent 33.3 Red Cell Distribution Width 12.6 Platelet Count 251 # Mean Platelet Volume 9.4 Neutrophils % 59.4 Lymphocytes % 26.5 Monocytes % 10.1 Eosinophils % 2.8 Basophils % 0.6 Nucleated Red Blood Cells % 0.0 Neutrophils # 4.3 Lymphocytes # 1.9 Monocytes # 0.7 Eosinophils # 0.2 Basophils # 0.0 Nucleated Red Blood Cells # 0.0 Hemoglobin A1c 4.8 Phosphorus Level 3.9 Magnesium Level 1.9 Triglycerides Level 91 Cholesterol Level 185 LDL Cholesterol, Calculated 126 HDL Cholesterol 41 Cholesterol/HDL Ratio 4.5 Thyroid Stimulating Hormone (TSH) 2.670 Medications Medications Current Medications Ondansetron HCl 4 mg 4 mg Q6H PRN IV NAUSEA AND/OR VOMITING Last administered on 12/19/16 08:36; Admin Dose 4 MG; Start 12/16/16 at 07:30 Levofloxacin/ Dextrose (Levaquin 500mg/ D5W 100 ml (Pmx)) 100 ml @ 100 mls/hr DAILY IVPB Last administered on 12/19/16 08:37; Admin Dose 100 MLS/HR; Start at 09:00 Hydralazine HCl (Apresoline) 25 mg Q8H PRN PO ELEVATED BLOOD PRESSURE Last administered on 12/18/16 06:16; Admin Dose 25 MG; Start 12/17/16 at 04:00 Hydromorphone HCl (Dilaudid DEVELOPMENT EXECUTIVE) MG/HR CONTINUOUS R... Q4PCA IV Last administered on 12/19/16 15:59; Admin Dose 6 MG; Start 12/17/16 at 11:30 Senna (Senokot) 2 tab BID PO Last administered on 12/19/16 08:37; Admin Dose 2 TAB; Start 12/17/16 at 21:00 Magnesium Hydroxide (Milk Of Mag) 30 ml DAILY PRN PO CONSTIPATION; Start at 20:30 Bisacodyl (Dulcolax) 10 mg DAILY PRN PO CONSTIPATION Last administered on 08:37; Admin Dose 10 MG; Start 12/17/16 at 20:30 Apixaban (Eliquis) 10 mg BID PO Last administered on 12/19/16 08:37; Admin Dose 10 MG; Start 12/18/16 at 21:00; Stop 12/25/16 at 09:01 Apixaban (Eliquis) 5 mg BID PO ; Start 12/25/16 at 21:00 Famotidine (Pepcid Iv) 20 mg BID IV ; Start 12/19/16 at 21:00 ОЬЛГА WELLS Dec 19, 2016 18:46
[2016-12-19] MEDS ORDERED: HYDROmorphONE 2 MG/ML SYG IV PRN (19:00)
--- NOTE | 2016-12-19 20:38 | CONS ---
Date/Time of Note Date/Time of Note DATE: 12/19/16 TIME: 20:30 Assessment/Plan Assessment/Plan Chief Complaint/Hosp Course ID PROGRESS NOTE CURRENT ABX: => Levaquin #5 24H INTERVAL SUMMARY * NO fevers, WBC normalized, pleuritic chest pain, ambulatory in the room * Feeling better, no new complaints offered. Physical examination: 55 yo M, WN, WD, VSS, NAD HEENT: Unremarkable CHEST: Equal chest rise bilaterally without dyspnea on observation CV: Radial pulse RRR ABD: Soft, nontender : Deferred EXT: Warm, no cyanosis, SKIN: No rash, no diaphoresis ID ASSESSMENT 46 yo M admit with: 1. Sepsis 2/2 PNA * 12/16 CXR: Hypoinflation of the lungs and bibasilar atelectasis and possible infiltrates. Possible very small left pleural effusion. 2. Staph bacteremia 05/14 bottles from ED on admission =>DDx skin contaminant * BLOOD CULTURE Preliminary Organism 1 STAPHYLOCOCCUS SPECIES 3. Acute pulmonary embolism 4. Left lower extremity DVT CURRENT ABX: => Levaquin #5 ID RECOMMENDATIONS 1. Continue Levaquin 2. No current indicators of true GPC sepsis -> suspect skin contaminated BCx sample * Await results of staph ID * No need for Vanco IV unless he develops fevers, or other clinical indications for true staph septicemia . . . Problems: Consultation Date/Type/Reason Admit Date/Time Dec 16, 2016 at 07:11 Initial Consult Date 12/18/16 Type of Consultation: ID Referring Provider: DANIEL UNDERWOOD Exam/Review of Systems Vital Signs Vitals Vital Signs Date Time Temp Pulse Resp B/P Pulse Ox O2 Delivery O2 Flow Rate FiO2 12/19/16 19:30 98.0 83 18 154/95 98 12/16/16 04:38 Room Air 4.0 Nasal Cannula Intake and Output 12/18/16 12/18/16 12/19/16 15:00 23:00 07:00 Intake Total 1300 ml 700 ml Output Total 2000 ml Balance 1300 ml -1300 ml Results Result Diagram: 12/19/16 0712 12/19/16 0711 Results 24 hrs Laboratory Tests Test 12/19/16 07:11 12/19/16 07:12 Sodium Level 140 Potassium Level 4.1 Chloride Level 98 Carbon Dioxide Level 25 Anion Gap 21 H Blood Urea Nitrogen 7 Creatinine 0.74 Glucose Level 93 Calcium Level 9.4 Free Thyroxine 1.52 White Blood Count 7.2 Red Blood Count 5.03 Hemoglobin 15.8 Hematocrit 47.4 Mean Corpuscular Volume 94.2 Mean Corpuscular Hemoglobin 31.4 Mean Corpuscular Hemoglobin Concent 33.3 Red Cell Distribution Width 12.6 Platelet Count 251 # Mean Platelet Volume 9.4 Neutrophils % 59.4 Lymphocytes % 26.5 Monocytes % 10.1 Eosinophils % 2.8 Basophils % 0.6 Nucleated Red Blood Cells % 0.0 Neutrophils # 4.3 Lymphocytes # 1.9 Monocytes # 0.7 Eosinophils # 0.2 Basophils # 0.0 Nucleated Red Blood Cells # 0.0 Hemoglobin A1c 4.8 Phosphorus Level 3.9 Magnesium Level 1.9 Triglycerides Level 91 Cholesterol Level 185 LDL Cholesterol, Calculated 126 HDL Cholesterol 41 Cholesterol/HDL Ratio 4.5 Thyroid Stimulating Hormone (TSH) 2.670 Medications Medications Current Medications Ondansetron HCl 4 mg 4 mg Q6H PRN IV NAUSEA AND/OR VOMITING Last administered on 12/19/16 08:36; Admin Dose 4 MG; Start 12/16/16 at 07:30 Levofloxacin/ Dextrose (Levaquin 500mg/ D5W 100 ml (Pmx)) 100 ml @ 100 mls/hr DAILY IVPB Last administered on 12/19/16 08:37; Admin Dose 100 MLS/HR; Start at 09:00 Hydralazine HCl (Apresoline) 25 mg Q8H PRN PO ELEVATED BLOOD PRESSURE Last administered on 12/18/16 06:16; Admin Dose 25 MG; Start 12/17/16 at 04:00 Senna (Senokot) 2 tab BID PO Last administered on 12/19/16 08:37; Admin Dose 2 TAB; Start 12/17/16 at 21:00 Magnesium Hydroxide (Milk Of Mag) 30 ml DAILY PRN PO CONSTIPATION; Start at 20:30 Bisacodyl (Dulcolax) 10 mg DAILY PRN PO CONSTIPATION Last administered on 08:37; Admin Dose 10 MG; Start 12/17/16 at 20:30 Apixaban (Eliquis) 10 mg BID PO Last administered on 12/19/16 08:37; Admin Dose 10 MG; Start 12/18/16 at 21:00; Stop 12/25/16 at 09:01 Apixaban (Eliquis) 5 mg BID PO ; Start 12/25/16 at 21:00 Famotidine (Pepcid Iv) 20 mg BID IV ; Start 12/19/16 at 21:00 Hydromorphone HCl (Dilaudid) 2 mg Q4H PRN PO PAIN; Start 12/19/16 at 19:00 Hydromorphone HCl (Dilaudid) 2 mg Q4H PRN IV PAIN LEVEL 6-10; Start 12/19/16 at 19:00 ROBERTO CARLOS MUNIZ NP Dec 19, 2016 20:37
[2016-12-19] MEDS: HYDROmorphONE 2 MG TAB PO PRN (22:07)
[2016-12-19] MEDS: FAMOTIDINE 20 MG INJ IV SCH (22:08)
[2016-12-20] VITALS (12 sets, daily range): BP systolic 131–177; BP diastolic 78–98; PULSE 70–95; RESP 18–20
[2016-12-20] MEDS: HYDROmorphONE 2 MG TAB PO PRN ×3 (05:42→20:11)
[2016-12-20] MEDS: SENNA TAB PO SCH ×2 (09:38→20:11)
[2016-12-20] MEDS: LEVOFLOXACIN 500MG/D5W (PMX) 100 ML IVPB SCH (09:38)
[2016-12-20] MEDS: APIXABAN 5 MG TABLET PO SCH ×2 (09:38→20:12)
[2016-12-20] MEDS: FAMOTIDINE 20 MG INJ IV SCH ×2 (09:39→20:10)
[2016-12-20 10:23] LABS: BASOPHILS % 0.5 % (0.0-2.0); EOSINOPHILS # 0.1 10^3/ul (0.0-0.5); EOSINOPHILS % 2.2 % (0.0-7.0); HEMATOCRIT 45.6 % (42.0-52.0); HEMOGLOBIN 15.5 g/dl (14.0-18.0); LYMPHOCYTES # 1.4 10^3/ul (0.8-2.9); LYMPHOCYTES % 21.1 % (15.0-51.0); MEAN CORPUSCULAR VOLUME 91.2 fl (82.0-101.0); MEAN PLATELET VOLUME 9.2 fl (7.4-10.4); MONOCYTE # 0.8 10^3/ul (0.3-0.9); MONOCYTES % 11.6 % (0.0-11.0); NEUTROPHIL # 4.2 10^3/ul (1.6-7.5); NEUTROPHILS % 64.4 % (39.0-77.0); PLATELET COUNT 257 10^3/UL (140-415); RED CELL DISTRIBUTION WIDTH 12.7 % (11.5-14.5); WHITE BLOOD COUNT 6.5 10^3/ul (4.8-10.8)
[2016-12-20 10:45] LABS: MAGNESIUM 1.8 mg/dl (1.7-2.5); PHOSPHORUS 3.6 mg/dl (2.5-4.9)
[2016-12-20 10:48] LABS: CALCIUM 9.3 mg/dl (8.4-10.2); CREATININE 0.69 mg/dl (0.61-1.24); POTASSIUM 3.9 mmol/L (3.5-5.1)
--- NOTE | 2016-12-20 15:38 | PN ---
Date/Time of Note Date/Time of Note DATE: 12/20/16 TIME: 15:35 Assessment/Plan VTE Prophylaxis VTE Prophylaxis Intervention: other (Factor Xa inhibitors.) Lines/Catheters IV C[facility]ter Type ([facility] Peripheral IV Assessment/Plan Chief Complaint/Hosp Course 1. Bilateral pulmonary embolism. The patient was on therapeutic anticoagulation. The patient to be switched to oral anticoagulation. Being followed by pulmonology 2. Left lower extremity DVT. Management as per #1. The patient being followed by hematology and is undergoing hypercoagulable workup. 3. Pleuritic chest pain secondary to B/L PE. The patient's analgesics are being managed by pain management team. The patient currently off Dilaudid FISHER TRAP. On oral Dilaudid. 4. Community-acquired pneumonia. Continue antibiotics. 5. Fluids, electrolytes, and nutrition. Regular diet. 6. DVT prophylaxis. On therapeutic anticoagulation. 7. Plan. Continue current management. Weaning off pain medications as per pain management team. The patient has positive blood cultures in 1 sample. This could be most probably contaminant. Repeat blood cultures 2 negative. Case discussed with Dr. Castillo. Plan of care including the plan for discharge was explained to the patient in the presence of the patient's mother. Problems: Subjective 24 Hr Interval Summary Free Text/Dictation Chest wall pain well controlled. Exam/Review of Systems Vital Signs Vitals Vital Signs Date Time Temp Pulse Resp B/P Pulse Ox O2 Delivery O2 Flow Rate FiO2 12/20/16 13:27 94 12/20/16 11:40 98.4 20 177/89 97 Intake and Output 12/19/16 12/19/16 12/20/16 15:00 23:00 07:00 Intake Total 900 ml 500 ml Output Total 900 ml 700 ml Balance 0 ml -200 ml Exam General: Adequately build 46 year-old male lying in bed in no apparent distress. HEENT: Normocephalic, atraumatic. Eyes: Anicteric sclerae, conjunctivae clear. ENT: Nasal septum midline, oral mucosa moist. Neck supple, no JVD noticed. Respiratory: Bilaterally clear breath sounds. No use of accessory muscles of respiration. No adventitious breath sounds. Cardiovascular: S1, S2 heard. No murmurs or gallops. Abdomen: Soft, nontender, and nondistended. Bowel sounds positive in all 4 quadrants. Genitourinary: Deferred. Extremities: No cyanosis, no clubbing, no edema. Peripheral pulses palpable. Neurologic: Cranial nerves II through XII grossly intact. The patient is awake, alert, and oriented. Skin: Normal skin turgor. No skin rashes. Results Result Diagram: 12/20/1658 12/20/1658 Results 24 hrs Laboratory Tests Test 12/20/16 09:58 White Blood Count 6.5 Red Blood Count 5.00 Hemoglobin 15.5 Hematocrit 45.6 Mean Corpuscular Volume 91.2 Mean Corpuscular Hemoglobin 31.0 Mean Corpuscular Hemoglobin Concent 34.0 Red Cell Distribution Width 12.7 Platelet Count 257 Mean Platelet Volume 9.2 Neutrophils % 64.4 Lymphocytes % 21.1 Monocytes % 11.6 H Eosinophils % 2.2 Basophils % 0.5 Nucleated Red Blood Cells % 0.0 Neutrophils # 4.2 Lymphocytes # 1.4 Monocytes # 0.8 Eosinophils # 0.1 Basophils # 0.0 Nucleated Red Blood Cells # 0.0 Sodium Level 140 Potassium Level 3.9 Chloride Level 98 Carbon Dioxide Level 25 Anion Gap 21 H Blood Urea Nitrogen 7 Creatinine 0.69 Glucose Level 110 Calcium Level 9.3 Phosphorus Level 3.6 Magnesium Level 1.8 Medications Medications Current Medications Ondansetron HCl 4 mg 4 mg Q6H PRN IV NAUSEA AND/OR VOMITING Last administered on 12/19/16 08:36; Admin Dose 4 MG; Start 12/16/16 at 07:30 Levofloxacin/ Dextrose (Levaquin 500mg/ D5W 100 ml (Pmx)) 100 ml @ 100 mls/hr DAILY IVPB Last administered on 12/20/16 09:38; Admin Dose 100 MLS/HR; Start at 09:00 Hydralazine HCl (Apresoline) 25 mg Q8H PRN PO ELEVATED BLOOD PRESSURE Last administered on 12/18/16 06:16; Admin Dose 25 MG; Start 12/17/16 at 04:00 Senna (Senokot) 2 tab BID PO Last administered on 12/20/16 09:38; Admin Dose 2 TAB; Start 12/17/16 at 21:00 Magnesium Hydroxide (Milk Of Mag) 30 ml DAILY PRN PO CONSTIPATION; Start at 20:30 Bisacodyl (Dulcolax) 10 mg DAILY PRN PO CONSTIPATION Last administered on 08:37; Admin Dose 10 MG; Start 12/17/16 at 20:30 Apixaban (Eliquis) 10 mg BID PO Last administered on 12/20/16 09:38; Admin Dose 10 MG; Start 12/18/16 at 21:00; Stop 12/25/16 at 09:01 Apixaban (Eliquis) 5 mg BID PO ; Start 12/25/16 at 21:00 Famotidine (Pepcid Iv) 20 mg BID IV Last administered on 12/20/16 09:39; Admin Dose 20 MG; Start 12/19/16 at 21:00 Hydromorphone HCl (Dilaudid) 2 mg Q4H PRN PO PAIN Last administered on 05:42; Admin Dose 2 MG; Start 12/19/16 at 19:00 Hydromorphone HCl (Dilaudid) 2 mg Q4H PRN IV PAIN LEVEL 6-10; Start 12/19/16 at 19:00 RUBIO AGUERO NP Dec 20, 2016 15:38
--- NOTE | 2016-12-20 16:19 | CONS ---
Date/Time of Note Date/Time of Note DATE: 12/20/16 TIME: 16:15 Consult Date/Type/Reason Admit Date/Time Dec 16, 2016 at 07:11 Initial Consult Date 12/17/16 Type of Consultation: Pulmonary Ordering Provider: DANIEL UNDERWOOD Subjective Patient switched to p.o. pain meds. Remains relatively stable. No hypoxia no hemodynamic instability. Objective Vital Signs Date Time Temp Pulse Resp B/P Pulse Ox O2 Delivery O2 Flow Rate FiO2 12/20/16 16:00 98.7 107 18 131/89 95 Intake and Output 12/19/16 12/19/16 12/20/16 14:59 22:59 06:59 Intake Total 900 ml 500 ml Output Total 900 ml 700 ml Balance 0 ml -200 ml Exam PHYSICAL EXAMINATION GENERAL: Well-nourished well-developed gentleman comfortable at rest VITAL SIGNS: see below. HEENT: Pupils equal, round, and reactive to light. CARDIAC: S1, S2, 1/6 systolic ejection murmur CHEST: Diminished air entry bilaterally. ABDOMEN: Mildly distended. Bowel sounds present no guarding or rebound EXTREMITIES: No cyanosis, clubbing edema NEUROLOGIC: No focal deficits. Results/Medications Result Diagram: 12/20/1658 12/20/16 0958 Results 24 hrs Laboratory Tests Test 12/20/16 09:58 White Blood Count 6.5 Red Blood Count 5.00 Hemoglobin 15.5 Hematocrit 45.6 Mean Corpuscular Volume 91.2 Mean Corpuscular Hemoglobin 31.0 Mean Corpuscular Hemoglobin Concent 34.0 Red Cell Distribution Width 12.7 Platelet Count 257 Mean Platelet Volume 9.2 Neutrophils % 64.4 Lymphocytes % 21.1 Monocytes % 11.6 H Eosinophils % 2.2 Basophils % 0.5 Nucleated Red Blood Cells % 0.0 Neutrophils # 4.2 Lymphocytes # 1.4 Monocytes # 0.8 Eosinophils # 0.1 Basophils # 0.0 Nucleated Red Blood Cells # 0.0 Sodium Level 140 Potassium Level 3.9 Chloride Level 98 Carbon Dioxide Level 25 Anion Gap 21 H Blood Urea Nitrogen 7 Creatinine 0.69 Glucose Level 110 Calcium Level 9.3 Phosphorus Level 3.6 Magnesium Level 1.8 Medications Current Medications Ondansetron HCl 4 mg 4 mg Q6H PRN IV NAUSEA AND/OR VOMITING Last administered on 12/19/16t 08:36; Admin Dose 4 MG; Start 12/16/16 at 07:30 Levofloxacin/ Dextrose (Levaquin 500mg/ D5W 100 ml (Pmx)) 100 ml @ 100 mls/hr DAILY IVPB Last administered on 12/20/16 09:38; Admin Dose 100 MLS/HR; Start at 09:00 Hydralazine HCl (Apresoline) 25 mg Q8H PRN PO ELEVATED BLOOD PRESSURE Last administered on 12/18/16 06:16; Admin Dose 25 MG; Start 12/17/16 at 04:00 Senna (Senokot) 2 tab BID PO Last administered on 12/20/16 09:38; Admin Dose 2 TAB; Start 12/17/16 at 21:00 Magnesium Hydroxide (Milk Of Mag) 30 ml DAILY PRN PO CONSTIPATION; Start at 20:30 Bisacodyl (Dulcolax) 10 mg DAILY PRN PO CONSTIPATION Last administered on 08:37; Admin Dose 10 MG; Start 12/17/16 at 20:30 Apixaban (Eliquis) 10 mg BID PO Last administered on 12/20/16 09:38; Admin Dose 10 MG; Start 12/18/16 at 21:00; Stop 12/25/16 at 09:01 Apixaban (Eliquis) 5 mg BID PO ; Start 12/25/16 at 21:00 Famotidine (Pepcid Iv) 20 mg BID IV Last administered on 12/20/16 09:39; Admin Dose 20 MG; Start 12/19/16 at 21:00 Hydromorphone HCl (Dilaudid) 2 mg Q4H PRN PO PAIN Last administered on 15:57; Admin Dose 2 MG; Start 12/19/16 at 19:00 Hydromorphone HCl (Dilaudid) 2 mg Q4H PRN IV PAIN LEVEL 6-10; Start 12/19/16 at 19:00 Assessment/Plan Chief Complaint/Hosp Course Additional Assessment/Plan 1. Acute PE in patient with likely DVT for a month or longer. Appears unprovoked as the DVT likely was a cause of his LE issues and not a sprain. ECHO normal 2. B/L lower lobe infiltrates--RLL can be due to infarction, however, LLL there are no PE's 3. Hemoptysis--due to #1 RECS: 1. Started Eliquis 2. Ambulate as tolerated 3. DC CUT PLUG PACKER and transitioned to p.o. pain meds 4. Complete antibiotics 5. Follow-up with hematology oncology as outpatient for hypercoagulable workup. Stable to discharge home from pulmonary standpoint once on p.o. pain meds. Problems: YAYA VALLEJO MD, [facility] Dec 20, 2016 16:19
[2016-12-20] MEDS: AMLODIPINE 2.5 MG TAB PO SCH (20:36)
--- NOTE | 2016-12-20 23:26 | CONS ---
Date/Time of Note Date/Time of Note DATE: 12/20/16 TIME: 23:16 Assessment/Plan Assessment/Plan Chief Complaint/Hosp Course ID PROGRESS NOTE CURRENT ABX: => Levaquin #6 24H INTERVAL SUMMARY * No new issues reported, patient is currently sleeping, no fevers, VSS, NAD, I am rounding late providing coverage for Team MD Crescencio ID colleagues * Feeling better, no new complaints offered. * Repeat BCx 12/18 remain (-) 48H * / BCx (+)1/2 bottles drawn in ED -> Still pending final ID & sensitivities as of late pm tonight * BLOOD CULTURE Preliminary BCULT GRAM BOTTLE 1 Gram positive cocci in clusters 1 of 1 bottle seen on gram stain of the broth * Organism 1 STAPHYLOCOCCUS SPECIES Physical examination: 55 yo M, WN, WD, VSS, NAD HEENT: Unremarkable CHEST: Equal chest rise bilaterally without dyspnea on observation CV: Radial pulse RRR ABD: Soft, nontender : Deferred EXT: Warm, no cyanosis, SKIN: No rash, no diaphoresis ID ASSESSMENT 46 yo M admit with: 1. Sepsis 2/2 PNA =>Sepsis resolved w/RESOLVING PNA * 12/16 CXR: Hypoinflation of the lungs and bibasilar atelectasis and possible infiltrates. Possible very small left pleural effusion. * 12/16 CT: Bilateral lower lung lobe and right middle lung lobe and lingular atelectasis/infiltrates. 2. Staph bacteremia 1/2 bottles from ED on admission =>Consistent with skin contaminated sample, no evidence of current septicemia * Repeat BCx 12/18 remain (-) 48H * / BCx (+)1/2 bottles drawn in ED -> Still pending final ID & sensitivities as of late pm tonight * BLOOD CULTURE Preliminary BCULT GRAM BOTTLE 1 Gram positive cocci in clusters 1 of 1 bottle seen on gram stain of the broth * Organism 1 STAPHYLOCOCCUS SPECIES 3. Acute pulmonary embolism w/ hemoptysis = started on anticoagulation 4. Left lower extremity DVT CURRENT ABX: => Levaquin #6 ID RECOMMENDATIONS 1. No current indicators of true GPC sepsis ->Clinical presentation is consistent w/contaminated skin BCx sample 2. When cleared for DC home => May DC on Levaquin 500mg PO daily to complete 10 day course of ABX . . . Problems: Consultation Date/Type/Reason Admit Date/Time Dec 16, 2016 at 07:11 Initial Consult Date 12/18/16 Type of Consultation: ID Referring Provider: DANIEL UNDERWOOD Exam/Review of Systems Vital Signs Vitals Vital Signs Date Time Temp Pulse Resp B/P Pulse Ox O2 Delivery O2 Flow Rate FiO2 12/20/16 20:00 93 12/20/16 19:46 98.7 20 137/98 98 Intake and Output 12/19/16 12/19/16 12/20/16 15:00 23:00 07:00 Intake Total 900 ml 500 ml Output Total 900 ml 700 ml Balance 0 ml -200 ml Results Result Diagram: 12/20/16 0958 12/20/16 0958 Results 24 hrs Laboratory Tests Test 12/20/16 09:58 White Blood Count 6.5 Red Blood Count 5.00 Hemoglobin 15.5 Hematocrit 45.6 Mean Corpuscular Volume 91.2 Mean Corpuscular Hemoglobin 31.0 Mean Corpuscular Hemoglobin Concent 34.0 Red Cell Distribution Width 12.7 Platelet Count 257 Mean Platelet Volume 9.2 Neutrophils % 64.4 Lymphocytes % 21.1 Monocytes % 11.6 H Eosinophils % 2.2 Basophils % 0.5 Nucleated Red Blood Cells % 0.0 Neutrophils # 4.2 Lymphocytes # 1.4 Monocytes # 0.8 Eosinophils # 0.1 Basophils # 0.0 Nucleated Red Blood Cells # 0.0 Sodium Level 140 Potassium Level 3.9 Chloride Level 98 Carbon Dioxide Level 25 Anion Gap 21 H Blood Urea Nitrogen 7 Creatinine 0.69 Glucose Level 110 Calcium Level 9.3 Phosphorus Level 3.6 Magnesium Level 1.8 Medications Medications Current Medications Ondansetron HCl 4 mg 4 mg Q6H PRN IV NAUSEA AND/OR VOMITING Last administered on 12/19/16 08:36; Admin Dose 4 MG; Start 12/16/16 at 07:30 Levofloxacin/ Dextrose (Levaquin 500mg/ D5W 100 ml (Pmx)) 100 ml @ 100 mls/hr DAILY IVPB Last administered on 12/20/16 09:38; Admin Dose 100 MLS/HR; Start at 09:00 Hydralazine HCl (Apresoline) 25 mg Q8H PRN PO ELEVATED BLOOD PRESSURE Last administered on 12/18/16 06:16; Admin Dose 25 MG; Start 12/17/16 at 04:00 Senna (Senokot) 2 tab BID PO Last administered on 12/20/16 20:11; Admin Dose 2 TAB; Start 12/17/16 at 21:00 Magnesium Hydroxide (Milk Of Mag) 30 ml DAILY PRN PO CONSTIPATION; Start at 20:30 Bisacodyl (Dulcolax) 10 mg DAILY PRN PO CONSTIPATION Last administered on 08:37; Admin Dose 10 MG; Start 12/17/16 at 20:30 Apixaban (Eliquis) 10 mg BID PO Last administered on 12/20/16 20:12; Admin Dose 10 MG; Start 12/18/16 at 21:00; Stop 12/25/16 at 09:01 Apixaban (Eliquis) 5 mg BID PO ; Start 12/25/16 at 21:00 Famotidine (Pepcid Iv) 20 mg BID IV Last administered on 12/20/16 20:10; Admin Dose 20 MG; Start 12/19/16 at 21:00 Hydromorphone HCl (Dilaudid) 2 mg Q4H PRN PO PAIN Last administered on 20:11; Admin Dose 2 MG; Start 12/19/16 at 19:00 Hydromorphone HCl (Dilaudid) 2 mg Q4H PRN IV PAIN LEVEL 6-10; Start 12/19/16 at 19:00 Amlodipine Besylate (Norvasc) 2.5 mg BID PO Last administered on 12/20/16 20:36 ; Admin Dose 2.5 MG; Start 12/20/16 at 21:00 ROBERTO CARLOS MUNIZ NP Dec 20, 2016 23:26
[2016-12-21] VITALS (8 sets, daily range): BP systolic 139–162; BP diastolic 90–97; PULSE 70–141; RESP 19–20
[2016-12-21] MEDS: HYDROmorphONE 2 MG TAB PO PRN ×2 (05:09→10:42)
--- NOTE | 2016-12-21 08:24 | RADRPT ---
Vent Rate: 73 bpm RR Interval: 0 msec MT Interval: 142 msec QRS Duration: 76 msec QT Interval: 392 msec QTC Interval: 431 msec P-R-T Hoyt: 60 - 57 - 66 degrees Normal sinus rhythm with sinus arrhythmia Normal ECG Electronically Signed By: Aldo Wheat [id number]
[2016-12-21] MEDS: SENNA TAB PO SCH (08:37)
[2016-12-21] MEDS: APIXABAN 5 MG TABLET PO SCH (08:38)
[2016-12-21] MEDS: AMLODIPINE 2.5 MG TAB PO SCH (08:39)
[2016-12-21] MEDS: FAMOTIDINE 20 MG INJ IV SCH (08:39)
[2016-12-21] MEDS: LEVOFLOXACIN 500MG/D5W (PMX) 100 ML IVPB SCH (08:40)
[2016-12-21 09:48] LABS: BASOPHILS % 0.7 % (0.0-2.0); EOSINOPHILS # 0.1 10^3/ul (0.0-0.5); EOSINOPHILS % 1.5 % (0.0-7.0); HEMATOCRIT 47.3 % (42.0-52.0); HEMOGLOBIN 16.1 g/dl (14.0-18.0); LYMPHOCYTES # 1.3 10^3/ul (0.8-2.9); LYMPHOCYTES % 22.1 % (15.0-51.0); MEAN CORPUSCULAR HEMOGLOBIN 31.1 pg (29.0-33.0); MEAN CORPUSCULAR VOLUME 91.5 fl (82.0-101.0); MEAN PLATELET VOLUME 9.2 fl (7.4-10.4); MONOCYTE # 0.5 10^3/ul (0.3-0.9); MONOCYTES % 9.2 % (0.0-11.0); NEUTROPHIL # 3.9 10^3/ul (1.6-7.5); NEUTROPHILS % 66.2 % (39.0-77.0); PLATELET COUNT 292 10^3/UL (140-415); RED BLOOD COUNT 5.17 10^6/ul (4.70-6.10); RED CELL DISTRIBUTION WIDTH 12.7 % (11.5-14.5); WHITE BLOOD COUNT 5.9 10^3/ul (4.8-10.8)
[2016-12-21 10:06] LABS: MAGNESIUM 1.9 mg/dl (1.7-2.5); PHOSPHORUS 2.9 mg/dl (2.5-4.9)
[2016-12-21 10:08] LABS: CALCIUM 9.3 mg/dl (8.4-10.2); CREATININE 0.73 mg/dl (0.61-1.24); POTASSIUM 3.4 mmol/L (3.5-5.1)
--- NOTE | 2016-12-21 10:15 | PDOCDIS ---
Discharge Instructions DIAGNOSIS Discharge Diagnosis Pulmonary embolism. CONDITION Patient Condition: Stable HOME CARE INSTRUCTIONS: Diet Instructions: RegularSpecial Diet: regular ACTIVITY: Activity Restrictions: Do not operate Power Tool FOLLOW UP/APPOINTMENTS Follow-up Plan 1. Aliza Lund MD Specialty Oncology, Hematology Office Address [address] [place] [address] Office 2. Fabian Lisa MD Specialty: Internal Medicine Office Address: [address] [place] [address] Office 3. Jacques Cohen MD Specialty Pulmonology Comments Office Address [address] [place] [address] Office OTHER ORDERS: Other Orders: 1. Take medications as per prescription. Start taking the 5 mg Eliquis after you finish taking your 10 mg Eliquis tablets. Use caution while using sharp instruments because of high risk for bleeding. Avoid aspirin containing products. 2. Take a regular diet. 3. Activities as tolerated. 4. Follow-up with hematology [] in 2 weeks. Please call for appointment. 5. Please follow-up with your primary care doctor in 1 week. If you do not have a primary care physician, please call Dr. Fabian Lisa's office. 6. Please follow-up with pulmonology. Please call for appointment. RUBIO AGUERO NP Dec 21, 2016 10:15
[2016-12-21] MEDS ORDERED: APIX5TAB PO (10:22)
[2016-12-21] MEDS ORDERED: AMLO2.5T78 PO (10:22)
[2016-12-21] MEDS ORDERED: TRAM-40 PO (10:22)
--- NOTE | 2016-12-21 10:54 | DS ---
Date/Time of Note Date/Time of Note DATE: 12/21/16 TIME: 10:53 Discharge Summary Admission/Discharge Info Admit Date/Time Dec 16, 2016 at 07:11 Discharge Date/Time Discharge Diagnosis 1. Bilateral pulmonary embolism. 2. Left lower extremity DVT. 3. Pleuritic chest pain secondary to B/L PE. 4. Community-acquired pneumonia. 5. Essential hypertension. Patient Condition: Stable Consults 1. Jacques Tristan MD, Pulmonology. 2. Aliza Lund MD, Hematology. 3. Alexandre Kapoor MD, Pain Management. 4. Grabiel Prather MD, Infectious Diseases. Procedures CT Angiogram of the Chest IMPRESSION: Pulmonary emboli. Bilateral lower lung lobe and right middle lung lobe and lingular atelectasis/infiltrates. Trace right pleural fluid. 2D Echocardiogram Conclusions 1. Normal left ventricular systolic function. Normal left ventricular cavity size. Normal left ventricular wall thickness. Ejection fraction is visually estimated at 65 %. Tissue Doppler/Mitral Doppler indices are consistent with impaired relaxation (Stage I diastolic dysfunction). E/E`=5. 2. Normal appearance and function of the mitral valve with trace physiologic regurgitation. 3. Normal appearance of the tricuspid valve. No evidence of tricuspid regurgitation. 4. Normal appearance of the aortic valve. No hemodynamically significant aortic stenosis by doppler. Mild aortic valve regurgitation. 5. There is mild aortic root dilation. 6. Normal right ventricular size. Normal right ventricular systolic function. Left Lower Extremity Venous Doppler Study IMPRESSION: Left lower extremity deep venous thrombosis. Hx of Present Illness This is a 46-year-old male with no significant past medical history who presented to the emergency department complaining of shortness of breath, cough with hemoptysis and chest pain. Chest pain and shortness of breath are worse with exertion. Chest pain is diffuse with no radiation. Denied nausea, vomiting, diaphoresis abdominal pain or urinary symptoms. When he presented to the ER, he was tachycardic with a heart rate of 116 otherwise the rest of his vitals were stable. CT pulmonary angiogram showed pulmonary emboli. The chest CT also revealed bilateral lower lung lobe and right middle lung lobe and lingular atelectasis/infiltrates. Trace right pleural fluid was also seen. Lower extremity venous study shows DVT. He received a treatment dose of Lovenox in the ER. Patient had left ankle injury that happened over 2 weeks prior to this hospitalization when he was lifting up heavy object and possibly twisting his ankle. Since then he has not been active. He actually came to our ER on November 28 and had x-ray of his right ankle which showed no fracture or dislocation. . Hospital Course The patient was admitted to inpatient telemetry floor. Pulmonology consult was called on this patient. The patient was started on therapeutic anticoagulation. The patient's pulmonary embolism could be from the left lower extremity DVT. However, provided the extensive nature of the patient's pulmonary embolism, a hematology consult was called on this patient. Hypercoagulable workup was sent including protein C&S levels, anti-phospholipid syndrome, etc. Patient had significant pleuritic chest pain, most probably secondary to underlying pulmonary embolism. It was hard to manage his pain with spot analgesics. Therefore, pain management team was involved in the patient's care. The patient was maintained on a Dilaudid AIR COMPRESSOR OPERATOR for pain management. The patient's AIR COMPRESSOR OPERATOR was later weaned off. The patient was incidentally noticed to have elevated blood pressure readings. At one point of time, the patient had a systolic blood pressure reading of 177 mm Hg. The patient denied any history of essential hypertension. In fact, the patient verbalized that his blood pressure always runs on the lower side. Since the patient continued to have consistently elevated blood pressure, he was started on low-dose calcium channel blockers with improvement in the patient 's hypertension. The reason for the patient's elevated blood pressure was unclear. This could be from underlying stress versus underlying pain. Hence the patient was advised to follow-up with his primary care physician at the earliest to evaluate the necessity and duration of antihypertensive therapy. The patient had evidence of community-acquired pneumonia. Consequently, the patient was maintained on appropriate antibiotics. The patient's a blood culture 1 that was drawn from 12/16/2016 showed coagulase-negative Staphylococcus. Therefore, a repeat blood cultures were obtained. This was suspected to be most probably secondary to sample contamination. Nevertheless, infectious diseases was involved in the patient's care for antibiotic management and further recommendations for positive blood cultures. Infectious disease concurred with the false positive blood cultures secondary to sample contamination. The patient was switched to oral anticoagulation. Case management consult was obtained for clarifying Eliquis coverage by the patient's insurance. This was confirmed. Therefore, the patient will be discharged home to be followed up with outpatient hematology to confirm the duration of anticoagulation therapy based on the hypercoagulable workup that are still pending. The patient had a stable, but prolonged hospital course. The patient was cleared by consultants to be discharged home. Discharge Instructions 1. Take medications as per prescription. Start taking the 5 mg Eliquis after you finish taking your 10 mg Eliquis tablets. Use caution while using sharp instruments because of high risk for bleeding. Avoid aspirin containing products. 2. Take a regular diet. 3. Activities as tolerated. 4. Follow-up with hematology [] in 2 weeks. Please call for appointment. 5. Please follow-up with your primary care doctor in 1 week. If you do not have a primary care physician, please call Dr. Fabian Lisa's office. 6. Please follow-up with pulmonology. Please call for appointment. At this time I would like to thank all the consultants for seeing the patient and providing clinical recommendations. Case discussed with Dr. Castillo. Home Meds Active Scripts Tramadol Hcl* (Ultram*) 50 Mg Tablet, 100 MG PO Q6H Y for PAIN, #30 TAB Prov:RUBIO AGUERO NP 12/21/16 Amlodipine Besylate* (Amlodipine Besylate*) 2.5 Mg Tablet, 2.5 MG PO BID for 30 Days, #60 TAB Prov:RUBIO AGUERO NP 12/21/16 Apixaban* (Eliquis*) 5 Mg Tablet, 10 MG PO BID, #8 TAB The patient already got 6 doses of 14. Prov:RUBIO AGUERO NP 12/21/16 Apixaban* (Eliquis*) 5 Mg Tablet, 5 MG PO BID for 30 Days, #60 TAB Please start after finishing the 7 day dose of 10 mg twice daily. Prov:RUBIO AGUERO NP 12/21/16 Discontinued Reported Medications Methylprednisolone* (Medrol* DOSE PACK) 4 Mg/Dose-Pack Tab.ds.pk, 4 MG PO . DIRECTED, PACKET 12/16/16 Discontinued Scripts Ibuprofen* (Motrin*) 600 Mg Tab, 600 MG PO Q6H Y for PAIN AND OR ELEVATED TEMP, #30 TAB Prov:GILLIAN COLON NP 11/28/16 Hydrocodone/Acetaminophen ([place] 5-325 Tablet) 1 Each Tablet, 1 TAB PO Q6H Y for SEVERE PAIN LEVEL 7-10, #20 TAB Prov:GILLIAN COLON NP 11/28/16 Follow-up Plan 1. Follow up with outpatient hematology. 2. Follow-up with outpatient pulmonology. 3. Follow-up with your primary care physician 1 week. Primary Care Provider Care Physician No Primary Time spent on discharge: > 30 minutes Pending Labs Laboratory Tests Test 12/21/16 09:15 White Blood Count 5.910^3/ul (4.8-10.8) Red Blood Count 5.1710^6/ul (4.70-6.10) Hemoglobin 16.1g/dl (14.0-18.0) Hematocrit 47.3% (42.0-52.0) Mean Corpuscular Volume 91.5fl (82.0-101.0) Mean Corpuscular Hemoglobin 31.1pg (29.0-33.0) Mean Corpuscular Hemoglobin Concent 34.0g/dl (32.0-37.0) Red Cell Distribution Width 12.7% (11.5-14.5) Platelet Count 60914^3/UL (140-415) Mean Platelet Volume 9.2fl (7.4-10.4) Neutrophils % 66.2% (39.0-77.0) Lymphocytes % 22.1% (15.0-51.0) Monocytes % 9.2% (0.0-11.0) Eosinophils % 1.5% (0.0-7.0) Basophils % 0.7% (0.0-2.0) Nucleated Red Blood Cells % 0.0/100WBC (0.0-0.0) Neutrophils # 3.910^3/ul (1.6-7.5) Lymphocytes # 1.310^3/ul (0.8-2.9) Monocytes # 0.510^3/ul (0.3-0.9) Eosinophils # 0.110^3/ul (0.0-0.5) Basophils # 0.010^3/ul (0.0-0.1) Nucleated Red Blood Cells # 0.010^3/ul (0.0-0.0) Sodium Level 140mmol/L (135-144) Potassium Level 3.4mmol/L (3.5-5.1) Chloride Level 100mmol/L (97-110) Carbon Dioxide Level 23mmol/L (21-31) Anion Gap 20 (8-16) Blood Urea Nitrogen 5mg/dl (7-20) Creatinine 0.73mg/dl (0.61-1.24) Glucose Level 149mg/dl (70-220) Calcium Level 9.3mg/dl (8.4-10.2) Phosphorus Level 2.9mg/dl (2.5-4.9) Magnesium Level 1.9mg/dl (1.7-2.5) RUBIO AGUERO NP Dec 21, 2016 10:54 RUBIO AGUERO NP Dec 21, 2016 10:54
--- NOTE | 2016-12-21 13:17 | CONS ---
Date/Time of Note Date/Time of Note DATE: 12/21/16 TIME: 13:16 Consult Date/Type/Reason Admit Date/Time Dec 16, 2016 at 07:11 Initial Consult Date 12/17/16 Type of Consultation: Pulmonary Ordering Provider: DANIEL UNDERWOOD Subjective Patient remains stable for morning no new events. No shortness of breath no chest pain. Objective Vital Signs Date Time Temp Pulse Resp B/P Pulse Ox O2 Delivery O2 Flow Rate FiO2 12/21/16 12:00 89 12/21/16 11:17 98.0 19 154/90 98 Intake and Output 12/20/16 12/20/16 12/21/16 15:00 23:00 07:00 Intake Total 500 ml Output Total 650 ml Balance -150 ml Exam PHYSICAL EXAMINATION GENERAL: Well-nourished well-developed gentleman comfortable at rest VITAL SIGNS: see below. HEENT: Pupils equal, round, and reactive to light. CARDIAC: S1, S2 CHEST: Diminished air entry bilaterally. ABDOMEN: Mildly distended. Bowel sounds present no guarding or rebound EXTREMITIES: No cyanosis, clubbing edema NEUROLOGIC: No focal deficits. Results/Medications Result Diagram: 12/21/1615 12/21/16 0915 Results 24 hrs Laboratory Tests Test 12/21/16 09:15 White Blood Count 5.9 Red Blood Count 5.17 Hemoglobin 16.1 Hematocrit 47.3 Mean Corpuscular Volume 91.5 Mean Corpuscular Hemoglobin 31.1 Mean Corpuscular Hemoglobin Concent 34.0 Red Cell Distribution Width 12.7 Platelet Count 292 Mean Platelet Volume 9.2 Neutrophils % 66.2 Lymphocytes % 22.1 Monocytes % 9.2 Eosinophils % 1.5 Basophils % 0.7 Nucleated Red Blood Cells % 0.0 Neutrophils # 3.9 Lymphocytes # 1.3 Monocytes # 0.5 Eosinophils # 0.1 Basophils # 0.0 Nucleated Red Blood Cells # 0.0 Sodium Level 140 Potassium Level 3.4 L Chloride Level 100 Carbon Dioxide Level 23 Anion Gap 20 H Blood Urea Nitrogen 5 L Creatinine 0.73 Glucose Level 149 Calcium Level 9.3 Phosphorus Level 2.9 Magnesium Level 1.9 Medications Current Medications Ondansetron HCl 4 mg 4 mg Q6H PRN IV NAUSEA AND/OR VOMITING Last administered on 12/19/16t 08:36; Admin Dose 4 MG; Start 12/16/16 at 07:30 Levofloxacin/ Dextrose (Levaquin 500mg/ D5W 100 ml (Pmx)) 100 ml @ 100 mls/hr DAILY IVPB Last administered on 12/21/16 08:40; Admin Dose 100 MLS/HR; Start 12/16/16 at 09:00 Hydralazine HCl (Apresoline) 25 mg Q8H PRN PO ELEVATED BLOOD PRESSURE Last administered on 12/18/16 06:16; Admin Dose 25 MG; Start 12/17/16 at 04:00 Senna (Senokot) 2 tab BID PO Last administered on 12/21/16 08:37; Admin Dose 2 TAB; Start 12/17/16 at 21:00 Magnesium Hydroxide (Milk Of Mag) 30 ml DAILY PRN PO CONSTIPATION; Start at 20:30 Bisacodyl (Dulcolax) 10 mg DAILY PRN PO CONSTIPATION Last administered on 08:37; Admin Dose 10 MG; Start 12/17/16 at 20:30 Apixaban (Eliquis) 10 mg BID PO Last administered on 12/21/16 08:38; Admin Dose 10 MG; Start 12/18/16 at 21:00; Stop 12/25/16 at 09:01 Apixaban (Eliquis) 5 mg BID PO ; Start 12/25/16 at 21:00 Famotidine (Pepcid Iv) 20 mg BID IV Last administered on 12/21/16 08:39; Admin Dose 20 MG; Start 12/19/16 at 21:00 Hydromorphone HCl (Dilaudid) 2 mg Q4H PRN PO PAIN Last administered on 10:42; Admin Dose 2 MG; Start 12/19/16 at 19:00 Hydromorphone HCl (Dilaudid) 2 mg Q4H PRN IV PAIN LEVEL 6-10; Start 12/19/16 at 19:00 Amlodipine Besylate (Norvasc) 2.5 mg BID PO Last administered on 12/21/16 08: 39; Admin Dose 2.5 MG; Start 12/20/16 at 21:00 Assessment/Plan Chief Complaint/Hosp Course Additional Assessment/Plan 1. Acute PE in patient with likely DVT for a month or longer. Appears unprovoked as the DVT likely was a cause of his LE issues and not a sprain. ECHO normal 2. B/L lower lobe infiltrates--RLL can be due to infarction, however, LLL there are no PE's 3. Hemoptysis--due to #1 RECS: 1. Started Eliquis 2. Ambulate as tolerated 3. Continue pain meds. 4. Complete antibiotics 5. Follow-up with hematology oncology as outpatient for hypercoagulable workup. Discharge home today. Problems: YAYA VALLEJO MD, [facility] Dec 21, 2016 13:17
[2016-12-21] MEDS ORDERED: FAMOTIDINE 20 MG TAB PO SCH (21:00)
[2016-12-25] MEDS ORDERED: APIXABAN 5 MG TABLET PO SCH (21:00)
== END 2016-12-21 14:47 | disposition home or self-care (01) | DRG 871 ==
LOC: E/R 00:31 → MS4 07:11
PROVIDERS: ADMIT Internal Medicine; ATTEND Internal Medicine
DX: A41.9 Sepsis, unspecified organism (principal); I26.99 Other pulmonary embolism without acute cor pulmonale; J18.9 Pneumonia, unspecified organism; I82.5Z2 Chronic embolism and thrombosis of unspecified deep veins of left distal lower extremity; R04.2 Hemoptysis; R03.0 Elevated blood-pressure reading, without diagnosis of hypertension; B95.8 Unspecified staphylococcus as the cause of diseases classified elsewhere; E87.6 Hypokalemia; Y95 Nosocomial condition; Z87.828 Personal history of other (healed) physical injury and trauma
CPT/HCPCS: 36415; 71010; 71275; 80048; 80053; 80061; 80306; 83036; 83690; 83735; 83880; 84100; 84439; 84443; 84484; 85025; 85610; 85730; 87040; 93005; 93306; 93971; 96365; 96372; 96375; 96376; C9113; J0696; J1170; J1650; J1956; J2060; J2270; J2405; J7030; Q9967